=== PATIENT | male | born 1990 | race Hispanic/Latino ===

== ENCOUNTER 2023-10-02 20:42 | Emergency (ER) | payer SELFPAY ==
--- OUTSIDE RECORDS SUMMARY | 2023-10-02 20:49 | XMS REPORT | Continuity of Care Document ---
Author Name Unknown Address [address] [facility]. [address] [place] [address] [facility] Address [address] [facility] [address] [place] [address] Care Team Providers Care Photography Sales Associate Name Role Phone Yang Sparks Primary Care Physician Medications Ordered Medication Name Filled Medication Name Start Date Stop Date Current Medication? Ordering Clinician Indication Dosage Frequency Signature (SIG) Comments Components Source TAKE 1 TABLET BY MOUTH TWICE DAILY 2021-03 0-11 00:00: 00 No TAKE 1 TABLET BY MOUTH TWICE DAILY 2021-03 011 00:00: 00 No TAKE 1 TABLET TWICE DAILY. 8-04 00:00: 00 No 4 lisinopril 20 mg tablet 0 08-20 00:00: 00 No 1mg glimepiride 4 mg tablet 0 08-20 00:00: 00 No 1mg metformin 1,000 mg tablet 0 08-20 00:00: 00 No 1mg atorvastati n 20 mg tablet 0 23 00:00: 00 No 1mg Dose Unknown 0 08-20 00:00: 00 No glimepiride 4 mg tablet 0 08-20 00:00: 00 No 1mg metformin 1,000 mg tablet 0 08-20 00:00: 00 No 1mg atorvastati n 20 mg tablet 0 23 00:00: 00 No 1mg Dose Unknown 0 3-22 00:00: 00 No Dose Unknown 0 3-22 00:00: 00 No Dose Unknown 2021-0 3-22 00:00: 00 No Dose Unknown 0 3-22 00:00: 00 No Dose Unknown 0 3-22 00:00: 00 No Dose Unknown 0 3-22 00:00: 00 No Dose Unknown 2021-0 3-22 00:00: 00 No Dose Unknown 0 3-22 00:00: 00 No Dose Unknown 0 3-22 00:00: 00 No Dose Unknown 0 3-22 00:00: 00 No atorvastati n 20 mg tablet 2020-0 9-15 00:00: 00 No 1mg atorvastati n 20 mg tablet 2020-0 9-15 00:00: 00 No 1mg atorvastati n 10 mg tablet 2020-0 8-20 00:00: 00 No 1mg lisinopril 20 mg tablet 2020-0 8-20 00:00: 00 No 1mg Actos 45 mg tablet 2020-0 8-20 00:00: 00 No 1mg glimepiride 4 mg tablet 2020-0 8-20 00:00: 00 No 1mg metformin 1,000 mg tablet 2020-0 8-20 00:00: 00 No 1mg atorvastati n 20 mg tablet 2020-0 8-20 00:00: 00 No 1mg atorvastati n 10 mg tablet 2020-0 8-20 00:00: 00 No 1mg lisinopril 20 mg tablet 2020-0 8-20 00:00: 00 No 1mg Actos 45 mg tablet 2020-0 8-20 00:00: 00 No 1mg glimepiride 4 mg tablet 2020-0 8-20 00:00: 00 No 1mg metformin 1,000 mg tablet 2020-0 8-20 00:00: 00 No 1mg atorvastati n 20 mg tablet 2020-0 8-20 00:00: 00 No 1mg atorvastati n 10 mg tablet 2020-0 7-20 00:00: 00 No 1mg lisinopril 20 mg tablet 2020-0 7-20 00:00: 00 No 1mg glimepiride 4 mg tablet 2020-0 7-20 00:00: 00 No 1mg metformin 1,000 mg tablet 2020-0 7-20 00:00: 00 No 1mg atorvastati n 10 mg tablet 2020-0 7-20 00:00: 00 No 1mg lisinopril 20 mg tablet 0 7-20 00:00: 00 No 1mg glimepiride 4 mg tablet 0 7-20 00:00: 00 No 1mg metformin 1,000 mg tablet 0 720 00:00: 00 No 1mg metformin 1,000 mg tablet 0 4- 00:00: 00 No 1mg glimepiride 4 mg tablet 0 4- 00:00: 00 No 1mg atorvastati n 10 mg tablet 0 - 00:00: 00 No 1mg lisinopril 20 mg tablet 0 4- 00:00: 00 No 1mg metformin 1,000 mg tablet 0 4- 00:00: 00 No 1mg glimepiride 4 mg tablet 0 4 00:00: 00 No 1mg atorvastati n 10 mg tablet 0 - 00:00: 00 No 1mg lisinopril 20 mg tablet 0 - 00:00: 00 No 1mg pioglitazon e 45 mg tablet 0 1- 00:00: 00 No 1mg lisinopril 20 mg tablet 0 1-20 00:00: 00 No 1mg glimepiride 4 mg tablet 0 1-20 00:00: 00 No 1mg metformin 1,000 mg tablet 0 1-20 00:00: 00 No 1mg pioglitazon e 45 mg tablet 0 -20 00:00: 00 No 1mg lisinopril 20 mg tablet 0 1-20 00:00: 00 No 1mg glimepiride 4 mg tablet 0 1- 00:00: 00 No 1mg metformin 1,000 mg tablet 0 - 00:00: 00 No 1mg pioglitazon e 45 mg tablet 2019-03 00:00: 00 No 1mg glimepiride 4 mg tablet 2019-03 00:00: 00 No 1mg metformin 1,000 mg tablet 2019-03 00:00: 00 No 1mg pioglitazon e 45 mg tablet 2019-03 00:00: 00 No 1mg glimepiride 4 mg tablet 2019-03 00:00: 00 No 1mg metformin 1,000 mg tablet 2019-03 00:00: 00 No 1mg pioglitazon e 45 mg tablet 2019-03 00:00: 00 No 1mg lisinopril 20 mg tablet 2019-03 00:00: 00 No 1mg metformin 1,000 mg tablet 2019-03 00:00: 00 No 1mg glimepiride 4 mg tablet 2019-03 00:00: 00 No 1mg atorvastati n 10 mg tablet 2019-03 00:00: 00 No 1mg pioglitazon e 45 mg tablet 2019-03 00:00: 00 No 1mg lisinopril 20 mg tablet 2019-03 00:00: 00 No 1mg metformin 1,000 mg tablet 2019-03 00:00: 00 No 1mg glimepiride 4 mg tablet 2019-03 00:00: 00 No 1mg atorvastati n 10 mg tablet 2019-03 00:00: 00 No 1mg metformin 1,000 mg tablet 10-15 00:00: 00 No 1mg metformin 1,000 mg tablet 10-15 00:00: 00 No 1mg pioglitazon e 45 mg tablet 09-23 00:00: 00 No 1mg lisinopril 20 mg tablet 09-23 00:00: 00 No 1mg glimepiride 4 mg tablet 09-23 00:00: 00 No 1mg atorvastati n 10 mg tablet 09-23 00:00: 00 No 1mg pioglitazon e 45 mg tablet 09-23 00:00: 00 No 1mg lisinopril 20 mg tablet 09-23 00:00: 00 No 1mg glimepiride 4 mg tablet 09-23 00:00: 00 No 1mg atorvastati n 10 mg tablet 09-23 00:00: 00 No 1mg pioglitazon e 45 mg tablet 3 00:00: 00 No 1mg lisinopril 20 mg tablet 0 3-21 00:00: 00 No 1mg glimepiride 4 mg tablet 0 3 00:00: 00 No 1mg metformin 1,000 mg tablet 0 3 00:00: 00 No 1mg pioglitazon e 45 mg tablet 0 3- 00:00: 00 No 1mg lisinopril 20 mg tablet 0 06-18 00:00: 00 No 1mg glimepiride 4 mg tablet 0 06-18 00:00: 00 No 1mg metformin 1,000 mg tablet 0 3 00:00: 00 No 1mg pioglitazon e 45 mg tablet 0 1-09 00:00: 00 No 1mg pioglitazon e 45 mg tablet 0 1-09 00:00: 00 No 1mg lisinopril 20 mg tablet 0 1-08 00:00: 00 No 1mg glimepiride 4 mg tablet 0 1-08 00:00: 00 No 1mg metformin 1,000 mg tablet 0 1-08 00:00: 00 No 1mg lisinopril 20 mg tablet 0 1-08 00:00: 00 No 1mg glimepiride 4 mg tablet 0 1-08 00:00: 00 No 1mg metformin 1,000 mg tablet 0 1-08 00:00: 00 No 1mg lisinopril 20 mg tablet 0 8-20 00:00: 00 No 1mg metformin 1,000 mg tablet 0 820 00:00: 00 No 1mg glimepiride 4 mg tablet 0 820 00:00: 00 No 1mg lisinopril 20 mg tablet 0 820 00:00: 00 No 1mg metformin 1,000 mg tablet 820 00:00: 00 No 1mg glimepiride 4 mg tablet 820 00:00: 00 No 1mg lisinopril 20 mg tablet 0 605 00:00: 00 No 1mg metformin 1,000 mg tablet 605 00:00: 00 No 1mg glimepiride 4 mg tablet 0 605 00:00: 00 No 1mg lisinopril 20 mg tablet 0 605 00:00: 00 No 1mg metformin 1,000 mg tablet 0 605 00:00: 00 No 1mg glimepiride 4 mg tablet 0 605 00:00: 00 No 1mg lisinopril 20 mg tablet 0 212 00:00: 00 No 1mg metformin 1,000 mg tablet 0 212 00:00: 00 No 1mg glimepiride 4 mg tablet 0 2 00:00: 00 No 1mg lisinopril 20 mg tablet 0 2 00:00: 00 No 1mg metformin 1,000 mg tablet 0 2 00:00: 00 No 1mg glimepiride 4 mg tablet 0 2 00:00: 00 No 1mg lisinopril 20 mg tablet 2017-03 2 00:00: 00 No 1mg metformin 1,000 mg tablet 2017-03 00:00: 00 No 1mg glimepiride 4 mg tablet 2017-03 00:00: 00 No 1mg prednisone 20 mg tablet 2017-03 00:00: 00 No 1mg naproxen 500 mg tablet 2017-03 00:00: 00 No 1mg lisinopril 20 mg tablet 2017-03 00:00: 00 No 1mg metformin 1,000 mg tablet 2017-03 2 00:00: 00 No 1mg glimepiride 4 mg tablet 2017-03 00:00: 00 No 1mg prednisone 20 mg tablet 2017-03 00:00: 00 No 1mg naproxen 500 mg tablet 2017-03 00:00: 00 No 1mg lisinopril 20 mg tablet 12-12 00:00: 00 No 1mg glimepiride 4 mg tablet 12-12 00:00: 00 No 1mg metformin 1,000 mg tablet 12-12 00:00: 00 No 1mg lisinopril 20 mg tablet 12-12 00:00: 00 No 1mg glimepiride 4 mg tablet 12-12 00:00: 00 No 1mg metformin 1,000 mg tablet 12-12 00:00: 00 No 1mg glimepiride 4 mg tablet 09-02 00:00: 00 No 1mg glimepiride 4 mg tablet 09-02 00:00: 00 No 1mg lisinopril 20 mg tablet 08-28 00:00: 00 No 1mg metformin 1,000 mg tablet 08-28 00:00: 00 No 1mg glipizide 10 mg tablet 08-28 00:00: 00 No 2mg metformin 500 mg tablet 08-28 00:00: 00 No 5mg lovastatin 20 mg tablet 08-28 00:00: 00 No 2mg lisinopril 20 mg tablet 08-28 00:00: 00 No 1mg metformin 1,000 mg tablet 08-28 00:00: 00 No 1mg glipizide 10 mg tablet 08-28 00:00: 00 No 2mg metformin 500 mg tablet 08-28 00:00: 00 No 5mg lovastatin 20 mg tablet 08-28 00:00: 00 No 2mg lisinopril 20 mg tablet 07-21 00:00: 00 No 1mg metformin 1,000 mg tablet 07-21 00:00: 00 No 1mg glimepiride 4 mg tablet 07-21 00:00: 00 No 1mg lovastatin 20 mg tablet 07-21 00:00: 00 No 1mg lisinopril 20 mg tablet 07-21 00:00: 00 No 1mg metformin 1,000 mg tablet 07-21 00:00: 00 No 1mg glimepiride 4 mg tablet 07-21 00:00: 00 No 1mg lovastatin 20 mg tablet 07-21 00:00: 00 No 1mg lovastatin 10 mg tablet 04-02 00:00: 00 No 1mg lovastatin 10 mg tablet 04-02 00:00: 00 No 1mg lisinopril 20 mg tablet 2016-03 00:00: 00 No 1mg glimepiride 2 mg tablet 2016-03 00:00: 00 No 1mg metformin 1,000 mg tablet 2016-03 00:00: 00 No 1mg lisinopril 20 mg tablet 2016-03 00:00: 00 No 1mg glimepiride 2 mg tablet 2016-03 00:00: 00 No 1mg metformin 1,000 mg tablet 2016-03 00:00: 00 No 1mg amoxicillin 500 mg tablet 08-01 00:00: 00 No 2mg omeprazole 20 mg tablet,elizabeth yed release 08-01 00:00: 00 No 1mg clarithromy asim 500 mg tablet 08-01 00:00: 00 No 1mg amoxicillin 500 mg tablet 08-01 00:00: 00 No 2mg omeprazole 20 mg tablet,elizabeth yed release 08-01 00:00: 00 No 1mg clarithromy asim 500 mg tablet 08-01 00:00: 00 No 1mg lisinopril 20 mg tablet 07-18 00:00: 00 No 1mg glimepiride 2 mg tablet 07-18 00:00: 00 No 1mg metformin 1,000 mg tablet 07-18 00:00: 00 No 1mg lisinopril 20 mg tablet 07-18 00:00: 00 No 1mg glimepiride 2 mg tablet 07-18 00:00: 00 No 1mg metformin 1,000 mg tablet 07-18 00:00: 00 No 1mg lisinopril 20 mg tablet 2015-03 00:00: 00 No 1mg metformin 1,000 mg tablet 2015-03 00:00: 00 No 1mg glimepiride 2 mg tablet 2015-03 00:00: 00 No 1mg lisinopril 20 mg tablet 2015-03 00:00: 00 No 1mg metformin 1,000 mg tablet 2015-03 00:00: 00 No 1mg glimepiride 2 mg tablet 2015-03 00:00: 00 No 1mg naproxen 500 mg tablet 2015-03 00:00: 00 No 1mg naproxen 500 mg tablet 2015-03 00:00: 00 No 1mg cyclobenzap rine 10 mg tablet 2015-03 00:00: 00 No 1mg cyclobenzap rine 10 mg tablet 2015-03 00:00: 00 No 1mg lisinopril 20 mg tablet 12-10 00:00: 00 No 1mg glimepiride 2 mg tablet 12-10 00:00: 00 No 1mg metformin 1,000 mg tablet 12-10 00:00: 00 No 1mg lisinopril 20 mg tablet 12-10 00:00: 00 No 1mg glimepiride 2 mg tablet 12-10 00:00: 00 No 1mg metformin 1,000 mg tablet 12-10 00:00: 00 No 1mg glimepiride 4 mg tablet 08-29 00:00: 00 No 1mg glimepiride 4 mg tablet 08-29 00:00: 00 No 1mg glimepiride 4 mg tablet 08-20 00:00: 00 No 5mg lisinopril 20 mg tablet 08-20 00:00: 00 No 1mg metformin 1,000 mg tablet 08-20 00:00: 00 No 1mg glimepiride 4 mg tablet 08-20 00:00: 00 No 5mg lisinopril 20 mg tablet 08-20 00:00: 00 No 1mg metformin 1,000 mg tablet 08-20 00:00: 00 No 1mg Robaxin 500 mg tablet 07-19 00:00: 00 No 1mg Robaxin 500 mg tablet 07-19 00:00: 00 No 1mg cyclobenzap rine 5 mg tablet 07-17 00:00: 00 No 1mg cyclobenzap rine 5 mg tablet 07-17 00:00: 00 No 1mg Lantus 100 unit/mL subcutaneou s solution 04-24 00:00: 00 No 15unit/ mL simvastatin 40 mg tablet 04-24 00:00: 00 No 1mg Lantus 100 unit/mL subcutaneou s solution 04-24 00:00: 00 No 15unit/ mL simvastatin 40 mg tablet 04-24 00:00: 00 No 1mg lisinopril 20 mg tablet 04-18 00:00: 00 No 1mg metformin 1,000 mg tablet 04-18 00:00: 00 No 1mg glimepiride 4 mg tablet 04-18 00:00: 00 No 1mg simvastatin 20 mg tablet 04-18 00:00: 00 No 1mg lisinopril 20 mg tablet 04-18 00:00: 00 No 1mg metformin 1,000 mg tablet 04-18 00:00: 00 No 1mg glimepiride 4 mg tablet 04-18 00:00: 00 No 1mg simvastatin 20 mg tablet 04-18 00:00: 00 No 1mg metformin 1,000 mg tablet 11-05 00:00: 00 No 1mg glimepiride 2 mg tablet 11-05 00:00: 00 No 1mg simvastatin 20 mg tablet 11-05 00:00: 00 No 1mg lisinopril 20 mg tablet 11-05 00:00: 00 No 1mg metformin 1,000 mg tablet 11-05 00:00: 00 No 1mg glimepiride 2 mg tablet 11-05 00:00: 00 No 1mg simvastatin 20 mg tablet 11-05 00:00: 00 No 1mg lisinopril 20 mg tablet 11-05 00:00: 00 No 1mg glimepiride 2 mg tablet 06-28 00:00: 00 No 1mg lisinopril 20 mg tablet 06-28 00:00: 00 No 1mg metformin 1,000 mg tablet 06-28 00:00: 00 No 1mg glimepiride 2 mg tablet 06-28 00:00: 00 No 1mg lisinopril 20 mg tablet 06-28 00:00: 00 No 1mg metformin 1,000 mg tablet 06-28 00:00: 00 No 1mg lisinopril 20 mg tablet 06-14 00:00: 00 No 1mg glimepiride 2 mg tablet 06-14 00:00: 00 No 1mg metformin 1,000 mg tablet 06-14 00:00: 00 No 1mg lisinopril 20 mg tablet 06-14 00:00: 00 No 1mg glimepiride 2 mg tablet 06-14 00:00: 00 No 1mg metformin 1,000 mg tablet 06-14 00:00: 00 No 1mg Vital Signs Vital Name Observation Time Observation Value Comments S ource BP Systolic 2022-01-08 10:19:00 144 mm[Hg] BP Diastolic 2022-01-08 10:19:00 90 mm[Hg] Weight Measured 2022-01-08 10:19:00 195.40 pounds Height Measured 2022-01-08 10:19:00 67.80 inches Body Temperature 2022-01-08 10:19:00 97.70 degrees Heart Rate 2022-01-08 10:19:00 89.00 /min Respiratory Rate 2022-01-08 10:19:00 BP Systolic 2021-08-20 08:58:00 132 mm[Hg] BP Diastolic 2021-08-20 08:58:00 81 mm[Hg] Weight Measured 2021-08-20 08:58:00 201.60 pounds Height Measured 2021-08-20 08:58:00 67.80 inches Body Temperature 2021-08-20 08:58:00 97.70 degrees Heart Rate 2021-08-20 08:58:00 98.00 /min Respiratory Rate 2021-08-20 08:58:00 16.00 /min BP Systolic 2021-06-19 16:46:00 146 mm[Hg] BP Diastolic 2021-06-19 16:46:00 88 mm[Hg] Weight Measured 2021-06-19 16:46:00 202.60 pounds Height Measured 2021-06-19 16:46:00 67.80 inches Body Temperature 2021-06-19 16:46:00 98.20 degrees Heart Rate 2021-06-19 16:46:00 86.00 /min Respiratory Rate 2021-06-19 16:46:00 16.00 /min BP Systolic 2021-01-03 10:58:00 BP Diastolic 2021-01-03 10:58:00 Weight Measured 2021-01-03 10:58:00 197.00 pounds Height Measured 2021-01-03 10:58:00 67.80 inches Body Temperature 2021-01-03 10:58:00 Heart Rate 2021-01-03 10:58:00 Respiratory Rate 2021-01-03 10:58:00 BP Systolic 2020-10-17 13:15:00 129 mm[Hg] BP Diastolic 2020-10-17 13:15:00 77 mm[Hg] Weight Measured 2020-10-17 13:15:00 197.80 pounds Height Measured 2020-10-17 13:15:00 67.80 inches Body Temperature 2020-10-17 13:15:00 97.90 degrees Heart Rate 2020-10-17 13:15:00 78.00 /min Respiratory Rate 2020-10-17 13:15:00 16.00 /min BP Systolic 2020-07-10 14:01:00 124 mm[Hg] BP Diastolic 2020-07-10 14:01:00 68 mm[Hg] Weight Measured 2020-07-10 14:01:00 187.60 pounds Height Measured 2020-07-10 14:01:00 67.80 inches Body Temperature 2020-07-10 14:01:00 98.50 degrees Heart Rate 2020-07-10 14:01:00 84.00 /min Respiratory Rate 2020-07-10 14:01:00 18.00 /min BP Systolic 2020-01-31 16:35:00 153 mm[Hg] BP Diastolic 2020-01-31 16:35:00 91 mm[Hg] Weight Measured 2020-01-31 16:35:00 196.20 pounds Height Measured 2020-01-31 16:35:00 67.80 inches Body Temperature 2020-01-31 16:35:00 97.50 degrees Heart Rate 2020-01-31 16:35:00 81.00 /min Respiratory Rate 2020-01-31 16:35:00 16.00 /min BP Systolic 2020-01-31 16:11:00 153 mm[Hg] BP Diastolic 2020-01-31 16:11:00 91 mm[Hg] Weight Measured 2020-01-31 16:11:00 196.20 pounds Height Measured 2020-01-31 16:11:00 67.80 inches Body Temperature 2020-01-31 16:11:00 97.50 degrees Heart Rate 2020-01-31 16:11:00 81.00 /min Respiratory Rate 2020-01-31 16:11:00 16.00 /min BP Systolic 2019-09-24 11:19:00 BP Diastolic 2019-09-24 11:19:00 Weight Measured 2019-09-24 11:19:00 200.00 pounds Height Measured 2019-09-24 11:19:00 67.80 inches Body Temperature 2019-09-24 11:19:00 Heart Rate 2019-09-24 11:19:00 Respiratory Rate 2019-09-24 11:19:00 BP Systolic 2019-06-19 08:17:00 137 mm[Hg] BP Diastolic 2019-06-19 08:17:00 88 mm[Hg] Weight Measured 2019-06-19 08:17:00 198.60 pounds Height Measured 2019-06-19 08:17:00 67.80 inches Body Temperature 2019-06-19 08:17:00 98.30 degrees Heart Rate 2019-06-19 08:17:00 66.00 /min Respiratory Rate 2019-06-19 08:17:00 BP Systolic 2019-04-07 08:58:00 BP Diastolic 2019-04-07 08:58:00 Weight Measured 2019-04-07 08:58:00 Height Measured 2019-04-07 08:58:00 Body Temperature 2019-04-07 08:58:00 Heart Rate 2019-04-07 08:58:00 83.00 /min Respiratory Rate 2019-04-07 08:58:00 Plan of Care Planned Activity Planned Date Details Comments Source Goal Plan of Care Note [code = 12735-8] Goal Plan of Care Note [code = 53184-7] Goal Plan of Care Note [code = 56443-7] Goal Plan of Care Note [code = 63923-4] Goal Plan of Care Note [code = 66953-5] Goal Plan of Care Note [code = 29083-2] Goal Plan of Care Note [code = 35017-7] Goal Plan of Care Note [code = 66389-3] Goal Plan of Care Note [code = 47921-7] Goal Plan of Care Note [code = 42206-6] Goal Plan of Care Note [code = 89323-4] Goal Plan of Care Note [code = 74741-9] Goal Plan of Care Note [code = 58075-2] Goal Plan of Care Note [code = 95131-9] Goal Plan of Care Note [code = 64647-5] Goal Plan of Care Note [code = 70469-2] Goal Plan of Care Note [code = 55399-4] Goal Plan of Care Note [code = 45818-6] Goal Plan of Care Note [code = 69876-6] Goal Plan of Care Note [code = 81666-8] Goal Plan of Care Note [code = 24192-2] Goal Plan of Care Note [code = 05070-8] Goal Plan of Care Note [code = 37275-4] Goal Plan of Care Note [code = 22562-3] Goal Plan of Care Note [code = 87795-9] Goal Plan of Care Note [code = 37951-5] Goal Plan of Care Note [code = 25477-1] Goal Plan of Care Note [code = 54802-7] Goal Plan of Care Note [code = 99154-4] Goal Plan of Care Note [code = 90330-0] Goal Plan of Care Note [code = 42838-2] Goal Plan of Care Note [code = 00224-8] Goal Plan of Care Note [code = 32478-7] Goal Plan of Care Note [code = 55291-7] Goal Plan of Care Note [code = 79678-2] Goal Plan of Care Note [code = 98650-0] Goal Plan of Care Note [code = 91261-9] Goal Plan of Care Note [code = 69919-9] Goal Plan of Care Note [code = 39127-6] Goal Plan of Care Note [code = 78075-3] Goal Plan of Care Note [code = 85664-8] Goal Plan of Care Note [code = 94401-7] Goal Plan of Care Note [code = 38925-2] Goal Plan of Care Note [code = 83048-5] Goal Plan of Care Note [code = 56233-3] Goal Plan of Care Note [code = 19800-2] Encounters Start Date/Time End Date/Time Encounter Type Admission Type Attending [facility] Care Department Encounter ID Source 2023-08-20 20:21:57 2023-08-20 20:21:57 Outpatient SFA SFA [id number] Tavo Ford 2023-02-17 08:21:53 2023-02-17 08:21:53 Outpatient SFA SFA [id number] Tavo Ford 2022-11-23 13:51:27 2022-11-23 13:51:27 Outpatient SFA SFA [id number] Tavo Ford 2022-08-15 15:21:11 2022-08-15 15:21:11 Outpatient SFA SFA [id number] Tavo Ford 2022-08-14 08:48:06 2022-08-14 08:48:06 Outpatient SFA SFA [id number] Tavo Ford 2022-04-06 12:35:39 2022-04-06 12:35:39 Outpatient SFA SFA [id number] Tavo Ford 2022-01-08 10:14:59 2022-01-08 10:14:59 Outpatient SFA SFA [id number] Tavo Ford 2022-01-08 00:00:00 2022-01-08 00:00:00 Outpatient Visit [id number] 2021-10-13 00:00:00 2021-10-13 00:00:00 Outpatient Visit [id number] Results Test Description Test Time Test Comments Results Result Co mments Source COMPREHENSIVE METABOLIC [id number] 04:46:53* Test Item Value Reference Range Interpretation Comme nts GLUCOSE (test code = 2217) 225 MG/DL 70-99 H BUN (test code = 2208) 11 MG/DL 6-20 CREATININE (test code = 2214) 0.80 MG/DL 0.80-1.40 eGFR (2020 CKD-EPI) (test code = 53960) 120 ML/MIN/1.73 >60 CALC BUN/CREAT (test code = 2234) 14 RATIO 6-28 SODIUM (test code = 2230) 137 MEQ/L 133-146 POTASSIUM (test code = 8) 4.2 MEQ/L 3.5-5.4 CHLORIDE (test code = 2214) 98 MEQ/L 95-107 CARBON DIOXIDE (test code = 2205) 23 MEQ/L 19-31 CALCIUM (test code = 2208) 9.6 MG/DL 8.5-10.5 PROTEIN, TOTAL (test code = 2228) 6.8 G/DL 6.1-8.3 ALBUMIN (test code = 2200) 4.8 G/DL 3.5-5.2 CALC GLOBULIN (test code = 0) 2.0 G/DL 1.9-3.7 CALC A/G RATIO (test code = 2233) 2.4 RATIO 1.0-2.6 BILIRUBIN, TOTAL (test code = 2206) 0.5 MG/DL <=1.2 ALKALINE PHOSPHATASE (test code = 2203) 88 U/L 40-112 AST (test code = 2217) 21 U/L 9-50 ALT (test code = 2218) 22 U/L 5-50 UNLESS OTHERWISE INDICATED, ALL TESTING PERFORMED AT [facility] [address] [place] [address] GROUP DYNAMICS INSTRUCTOR: FLORY DEY M.D. [place] NUMBER [id number] [facility]. [id number] HEMOGLOBIN [id number] 03:13:50* Test Item Value Reference Range Interpretation Comme nts HEMOGLOBIN A1c (test code = 04084) 8.0 % 4.2-5.6 H [facility] [employer] [facility] [employer] GUIDELINES FOR HGB A1C: PREDIABETES/INCREASED RISK . . . . . . . 5.7-6.4% DIAGNOSIS OF DIABETES . . . . . . . . . >=6.5% WITH CONFIRMATION OR APPROPRIATE SYMPTOMS NOTE: ASSAY MAY BE AFFECTED BY HEMOGLOBINOPATHIES (SICKLE CELL ANEMIA, S-C DISEASE, OTHERS) OR ARTIFICIALLY LOWERED BY DECREASED RED CELL SURVIVAL (HEMOLYTIC ANEMIAS, BLOOD LOSS, ETC.). CONSIDER ALTERNATE TESTING OR LABORATORY CONSULTATION. COMPREHENSIVE METABOLIC [id number] 05:09:36* Test Item Value Reference Range Interpretation Comme nts GLUCOSE (test code = 2216) 202 MG/DL 70-99 H BUN (test code = 2207) 12 MG/DL 6-20 CREATININE (test code = 2213) 0.65 MG/DL 0.80-1.40 L eGFR (2020 CKD-EPI) (test code = 22947) 128 ML/MIN/1.73 >60 CALC BUN/CREAT (test code = 2234) 18 RATIO 6-28 SODIUM (test code = 2230) 135 MEQ/L 133-146 POTASSIUM (test code = 2227) 4.6 MEQ/L 3.5-5.4 CHLORIDE (test code = 2214) 101 MEQ/L 95-107 CARBON DIOXIDE (test code = 2205) 21 MEQ/L 19-31 CALCIUM (test code = 2208) 9.8 MG/DL 8.5-10.5 PROTEIN, TOTAL (test code = 2228) 6.9 G/DL 6.1-8.3 ALBUMIN (test code = 2200) 4.8 G/DL 3.5-5.2 CALC GLOBULIN (test code = 2239) 2.1 G/DL 1.9-3.7 CALC A/G RATIO (test code = 2233) 2.3 RATIO 1.0-2.6 BILIRUBIN, TOTAL (test code = 2206) 0.3 MG/DL See_Comment [Automated me ssage] The system which generated this result transmitted reference range: <=1.2. The reference range was not used to interpret this result as normal/abnormal. ALKALINE PHOSPHATASE (test code = 2203) 88 U/L 40-112 AST (test code = 2217) 16 U/L 9-50 ALT (test code = 2218) 21 U/L 5-50 ALBUMIN/CREATININE RATIO, URINE, [id number] 04:12:57* Test Item Value Reference Range Interpretation Comme nts CREATININE, URINE, CONC. (test code = 2071) 49.9 MG/DL NOT ESTAB ALBUMIN, URINE, RANDOM (test code = 38538) 2.6 MG/DL NOT ESTAB CALC ALBUMIN/CREAT, RND (test code = 85135) 52 MG/G <30 H Note: Albumin/Cr eatinine ratio reference interval reflects ADA and NKF guidelines. UNLESS OTHERWISE INDICATED, ALL TESTING PERFORMED AT [facility] [address] [place] [id number] [employer] INSTRUCTOR: FLORY DEY M.D. MELODYIA NUMBER [id number] [place]. [id number] HEMOGLOBIN [id number] 02:15:46* Test Item Value Reference Range Interpretation Comme nts HEMOGLOBIN A1c (test code = 42580) 8.1 % 4.2-5.6 H [employer] GUIDELINES FOR HGB A1C: PREDIABETES/INCREASED RISK . . . . . . . 5.7-6.4% DIAGNOSIS OF DIABETES . . . . . . . . . >=6.5% WITH CONFIRMATION OR APPROPRIATE SYMPTOMS NOTE: ASSAY MAY BE AFFECTED BY HEMOGLOBINOPATHIES (SICKLE CELL ANEMIA, S-C DISEASE, OTHERS) OR ARTIFICIALLY LOWERED BY DECREASED RED CELL SURVIVAL (HEMOLYTIC ANEMIAS, BLOOD LOSS, ETC.). CONSIDER ALTERNATE TESTING OR LABORATORY CONSULTATION. LIPID [id number] 04:57:04* Test Item Value Reference Range Interpretation Comme nts CHOLESTEROL (test code = 2210) 213 MG/DL <200 H TRIGLYCERIDES (test code = 2232) 80 MG/DL <150 HDL CHOLESTEROL (test code = 2220) 45 MG/DL >39 CALC LDL CHOL (test code = 2237) 150 MG/DL <100 H NOTE: CALCULATED LDL IS BASED ON MIR-DUNN METHOD WHICHINCLUDES ADJUSTABLE TRIGLYCERIDE:VLDL CHOLESTEROL RATIO.THIS FACTOR VARIES BY MEASURED TRIGLYCERIDE AND NON-HDLCHOLESTEROL CONCENTRATIONS WITH INCREASED CALCULATED LDL SEENIN HIGHER TRIGLYCERIDE OR LOWER NON-HDL SPECIMENS. FOR MOREINFORMATION, SEE CLIENT ANNOUNCEMENT AT [email or web address] RISK RATIO LDL/HDL (test code = 2238) 3.33 RATIO <3.55 UNLESS OTHERW ISE INDICATED, [facility] [address] [place] [id number] GROUP DY[employer] INSTRUCTOR: JOHN BUENROSTRO M.D. CLIA NUMBER [id number] [place]. [id number] HEMOGLOBIN [id number] 02:50:18* Test Item Value Reference Range Interpretation Comme nts HEMOGLOBIN A1c (test code = 93246) 7.7 % 4.2-5.6 H [employer] GUIDELINES FOR HGB A1C: PREDIABETES/INCREASED RISK . . . . . . . 5.7-6.4% DIAGNOSIS OF DIABETES . . . . . . . . . >=6.5% WITH CONFIRMATION OR APPROPRIATE SYMPTOMS NOTE: ASSAY MAY BE AFFECTED BY HEMOGLOBINOPATHIES (SICKLE CELL ANEMIA, S-C DISEASE, OTHERS) OR ARTIFICIALLY LOWERED BY DECREASED RED CELL SURVIVAL (HEMOLYTIC ANEMIAS, BLOOD LOSS, ETC.). CONSIDER ALTERNATE TESTING OR LABORATORY CONSULTATION. HEMOGLOBIN [id number] 05:29:48* Test Item Value Reference Range Interpretation Comme nts HEMOGLOBIN A1c (test code = 19790) 8.9 % 4.2-5.6 H [facility] [employer] GUIDELINES FOR HGB A1C: PREDIABETES/INCREASED RISK . . . . . . . 5.7-6.4% DIAGNOSIS OF DIABETES . . . . . . . . . >=6.5% WITH CONFIRMATION OR APPROPRIATE SYMPTOMS NOTE: ASSAY MAY BE AFFECTED BY HEMOGLOBINOPATHIES (SICKLE CELL ANEMIA, S-C DISEASE, OTHERS) OR ARTIFICIALLY LOWERED BY DECREASED RED CELL SURVIVAL (HEMOLYTIC ANEMIAS, BLOOD LOSS, ETC.). CONSIDER ALTERNATE TESTING OR LABORATORY CONSULTATION. COMPREHENSIVE METABOLIC [id number] 04:51:33* Test Item Value Reference Range Interpretation Comme nts GLUCOSE (test code = 2217) 299 MG/DL 70-99 H BUN (test code = 2207) 10 MG/DL 6-20 CREATININE (test code = 2214) 0.67 MG/DL 0.80-1.40 L eGFR (2020 CKD-EPI) (test code = 48544) 128 ML/MIN/1.73 >60 CALC BUN/CREAT (test code = 2235) 15 RATIO 6-28 SODIUM (test code = 2231) 134 MEQ/L 133-146 POTASSIUM (test code = 2228) 4.3 MEQ/L 3.5-5.4 CHLORIDE (test code = 2215) 98 MEQ/L 95-107 CARBON DIOXIDE (test code = 2206) 20 MEQ/L 19-31 CALCIUM (test code = 2209) 9.7 MG/DL 8.5-10.5 PROTEIN, TOTAL (test code = 222) 6.8 G/DL 6.1-8.3 ALBUMIN (test code = 220) 4.6 G/DL 3.5-5.2 CALC GLOBULIN (test code = 2240) 2.2 G/DL 1.9-3.7 CALC A/G RATIO (test code = 2234) 2.1 RATIO 1.0-2.6 BILIRUBIN, TOTAL (test code = 2207) 0.3 MG/DL See_Comment [Automated me ssage] The system which generated this result transmitted reference range: <=1.2. The reference range was not used to interpret this result as normal/abnormal. ALKALINE PHOSPHATASE (test code = 2204) 90 U/L 40-112 AST (test code = 2218) 21 U/L 9-50 ALT (test code = 2219) 31 U/L 5-50 LIPID [id number] 04:51:33* Test Item Value Reference Range Interpretation Comme nts CHOLESTEROL (test code = 2210) 248 MG/DL <200 H TRIGLYCERIDES (test code = 2232) 212 MG/DL <150 H HDL CHOLESTEROL (test code = 2220) 50 MG/DL >39 CALC LDL CHOL (test code = 2237) 160 MG/DL <100 H NOTE: CALCULATED LDL IS BASED ON MIR-DUNN METHOD WHICHINCLUDES ADJUSTABLE TRIGLYCERIDE:VLDL CHOLESTEROL RATIO.THIS FACTOR VARIES BY MEASURED TRIGLYCERIDE AND NON-HDLCHOLESTEROL CONCENTRATIONS WITH INCREASED CALCULATED LDL SEENIN HIGHER TRIGLYCERIDE OR LOWER NON-HDL SPECIMENS. FOR MOREINFORMATION, SEE CLIENT ANNOUNCEMENT AT [email or web address] RISK RATIO LDL/HDL (test code = 2238) 3.20 RATIO <3.55 UNLESS OTHERW ISE INDICATED, ALL TESTING PERFORMED [facility] [address] [place] [id number] [employer] DY[employer] INSTRUCTOR: JOHN BUENROSTRO M.D. CLIA NUMBER [id number] [facility] [place]. [id number] LIPID [id number] 00:00:00* Test Item Value Reference Range Interpretation Comme nts CHOLESTEROL (test code = 2210) 248 MG/DL TRIGLYCERIDES (test code = 2232) 212 MG/DL HDL CHOLESTEROL (test code = 2220) 50 MG/DL CALC LDL CHOL (test code = 2237) 160 MG/DL RISK RATIO LDL/HDL (test cod e = 2238) 3.20 RATIO HEMOGLOBIN [id number] 00:00:00* Test Item Value Reference Range Interpretation Comme nts HEMOGLOBIN A1c (test code = 92553) 8.9 % HEMOGLOBIN [id number] 00:00:00* Test Item Value Reference Range Interpretation Comme nts HEMOGLOBIN A1c (test code = 29947) 8.9 % HEMOGLOBIN [id number] 00:00:00* Test Item Value Reference Range Interpretation Comme nts HEMOGLOBIN A1c (test code = 70461) 8.9 % COMPREHENSIVE METABOLIC [id number] 00:00:00* Test Item Value Reference Range Interpretation Comme nts GLUCOSE (test code = 2217) 299 MG/DL BUN (test code = 2208) 10 MG/DL CREATININE (test code = 2214) 0.67 MG/DL eGFR (2020 CKD-EPI) (test code = 64744) 128 ML/MIN/1.73 CALC BUN/CREAT (test code = 2235) 15 RATIO SODIUM (test code = 2231) 134 MEQ/L POTASSIUM (test code = 2228) 4.3 MEQ/L CHLORIDE (test code = 2215) 98 MEQ/L CARBON DIOXIDE (test code = 2206) 20 MEQ/L CALCIUM (test code = 2209) 9.7 MG/DL PROTEIN, TOTAL (test code = 2229) 6.8 G/DL ALBUMIN (test code = 2201) 4.6 G/DL CALC GLOBULIN (test code = 2240) 2.2 G/DL CALC A/G RATIO (test code = 2234) 2.1 RATIO BILIRUBIN, TOTAL (test code = 2207) 0.3 MG/DL ALKALINE PHOSPHATASE (test code = 2204) 90 U/L AST (test code = 2218) 21 U/L ALT (test code = 2219) 31 U/L COMPREHENSIVE METABOLIC [id number] 00:00:00* Test Item Value Reference Range Interpretation Comme nts GLUCOSE (test code = 2217) 299 MG/DL BUN (test code = 2208) 10 MG/DL CREATININE (test code = 2214) 0.67 MG/DL eGFR (2020 CKD-EPI) (test code = 06205) 128 ML/MIN/1.73 CALC BUN/CREAT (test code = 2235) 15 RATIO SODIUM (test code = 2231) 134 MEQ/L POTASSIUM (test code = 2228) 4.3 MEQ/L CHLORIDE (test code = 2215) 98 MEQ/L CARBON DIOXIDE (test code = 2206) 20 MEQ/L CALCIUM (test code = 2209) 9.7 MG/DL PROTEIN, TOTAL (test code = 2229) 6.8 G/DL ALBUMIN (test code = 2201) 4.6 G/DL CALC GLOBULIN (test code = 2240) 2.2 G/DL CALC A/G RATIO (test code = 2234) 2.1 RATIO BILIRUBIN, TOTAL (test code = 2207) 0.3 MG/DL ALKALINE PHOSPHATASE (test code = 2204) 90 U/L AST (test code = 2218) 21 U/L ALT (test code = 2219) 31 U/L LIPID [id number] 00:00:00* Test Item Value Reference Range Interpretation Comme nts CHOLESTEROL (test code = 2210) 248 MG/DL TRIGLYCERIDES (test code = 2232) 212 MG/DL HDL CHOLESTEROL (test code = 2220) 50 MG/DL CALC LDL CHOL (test code = 2237) 160 MG/DL RISK RATIO LDL/HDL (test cod e = 2238) 3.20 RATIO LIPID [id number] 00:00:00* Test Item Value Reference Range Interpretation Comme nts CHOLESTEROL (test code = 2210) 248 MG/DL TRIGLYCERIDES (test code = 2232) 212 MG/DL HDL CHOLESTEROL (test code = 2220) 50 MG/DL CALC LDL CHOL (test code = 2237) 160 MG/DL RISK RATIO LDL/HDL (test cod e = 2238) 3.20 RATIO HEMOGLOBIN [id number] 00:00:00* Test Item Value Reference Range Interpretation Comme nts HEMOGLOBIN A1c (test code = 75793) 8.9 % HEMOGLOBIN [id number] 00:00:00* Test Item Value Reference Range Interpretation Comme nts HEMOGLOBIN A1c (test code = 04054) 8.9 % COMPREHENSIVE METABOLIC [id number] 00:00:00* Test Item Value Reference Range Interpretation Comme nts GLUCOSE (test code = 2217) 299 MG/DL BUN (test code = 8) 10 MG/DL CREATININE (test code = 2214) 0.67 MG/DL eGFR (2020 CKD-EPI) (test code = 21650) 128 ML/MIN/1.73 CALC BUN/CREAT (test code = 2235) 15 RATIO SODIUM (test code = 2231) 134 MEQ/L POTASSIUM (test code = 2228) 4.3 MEQ/L CHLORIDE (test code = 2215) 98 MEQ/L CARBON DIOXIDE (test code = 2206) 20 MEQ/L CALCIUM (test code = 2209) 9.7 MG/DL PROTEIN, TOTAL (test code = 2229) 6.8 G/DL ALBUMIN (test code = 2201) 4.6 G/DL CALC GLOBULIN (test code = 2240) 2.2 G/DL CALC A/G RATIO (test code = 2234) 2.1 RATIO BILIRUBIN, TOTAL (test code = 2207) 0.3 MG/DL ALKALINE PHOSPHATASE (test code = 220) 90 U/L AST (test code = 2218) 21 U/L ALT (test code = 2219) 31 U/L SARS-CoV-2 (COVID-19) by RT-PCR (HIGH RISK)2021-01-05 00:00:00* Test Item Value Reference Range Interpretation Comme nts SARS-CoV-2 INTERPRETATION (t est code = 49463) NEGATIVE SOURCE (test code = 68723) NOT SPECIFIED SARS-CoV-2 (COVID-19) by RT-PCR (HIGH RISK)2021-01-05 00:00:00* Test Item Value Reference Range Interpretation Comme nts SARS-CoV-2 INTERPRETATION (t est code = 70971) NEGATIVE SOURCE (test code = 54024) NOT SPECIFIED SARS-CoV-2 (COVID-19) by RT-PCR (HIGH RISK)2021-01-05 00:00:00* Test Item Value Reference Range Interpretation Comme nts SARS-CoV-2 INTERPRETATION (t est code = 03580) NEGATIVE SOURCE (test code = 21946) NOT SPECIFIED MICROALBUMIN/CREATININE, RANDOM AND [id number] 00:00:00* Test Item Value Reference Range Interpretation Comme nts CREATININE, URINE, CONC. (te st code = 2072) 105.2 MG/DL ALBUMIN, URINE, RANDOM (test code = 85214) 2.4 MG/DL CALC ALBUMIN/CREAT, RND (nata t code = 11337) 23 MG/G MICROALBUMIN/CREATININE, RANDOM AND [id number] 00:00:00* Test Item Value Reference Range Interpretation Comme nts CREATININE, URINE, CONC. (te st code = 2071) 105.2 MG/DL ALBUMIN, URINE, RANDOM (test code = 54816) 2.4 MG/DL CALC ALBUMIN/CREAT, RND (nata t code = 35457) 23 MG/G MICROALBUMIN/CREATININE, RANDOM AND [id number] 00:00:00* Test Item Value Reference Range Interpretation Comme nts CREATININE, URINE, CONC. (te st code = 2071) 105.2 MG/DL ALBUMIN, URINE, RANDOM (test code = 24502) 2.4 MG/DL CALC ALBUMIN/CREAT, RND (nata t code = 48163) 23 MG/G LIPID [id number] 00:00:00* Test Item Value Reference Range Interpretation Comme nts CHOLESTEROL (test code = 2210) 241 MG/DL TRIGLYCERIDES (test code = 2232) 119 MG/DL HDL CHOLESTEROL (test code = 2220) 52 MG/DL CALC LDL CHOL (test code = 2237) 165 MG/DL RISK RATIO LDL/HDL (test cod e = 2238) 3.17 RATIO COMPREHENSIVE METABOLIC [id number] 00:00:00* Test Item Value Reference Range Interpretation Comme nts GLUCOSE (test code = 2217) 220 MG/DL BUN (test code = 2208) 13 MG/DL CREATININE (test code = 2214) 0.78 MG/DL eGFR AMER. (test cod e = 13263) 139 ML/MIN/1.73 eGFR NON- AMER. (test code = 78559) 120 ML/MIN/1.73 CALC BUN/CREAT (test code = 2235) 17 RATIO SODIUM (test code = 2231) 137 MEQ/L POTASSIUM (test code = 2228) 4.7 MEQ/L CHLORIDE (test code = 2215) 100 MEQ/L CARBON DIOXIDE (test code = 2206) 20 MEQ/L CALCIUM (test code = 2209) 9.7 MG/DL PROTEIN, TOTAL (test code = 2229) 6.9 G/DL ALBUMIN (test code = 2201) 4.7 G/DL CALC GLOBULIN (test code = 2240) 2.2 G/DL CALC A/G RATIO (test code = 2234) 2.1 RATIO BILIRUBIN, TOTAL (test code = 2207) 0.3 MG/DL ALKALINE PHOSPHATASE (test code = 2204) 88 U/L AST (test code = 2218) 16 U/L ALT (test code = 2219) 22 U/L COMPREHENSIVE METABOLIC [id number] 00:00:00* Test Item Value Reference Range Interpretation Comme nts GLUCOSE (test code = 2217) 220 MG/DL BUN (test code = 2208) 13 MG/DL CREATININE (test code = 2214) 0.78 MG/DL eGFR AMER. (test cod e = 06865) 139 ML/MIN/1.73 eGFR NON- AMER. (test code = 41545) 120 ML/MIN/1.73 CALC BUN/CREAT (test code = 2235) 17 RATIO SODIUM (test code = 2231) 137 MEQ/L POTASSIUM (test code = 2228) 4.7 MEQ/L CHLORIDE (test code = 2215) 100 MEQ/L CARBON DIOXIDE (test code = 2206) 20 MEQ/L CALCIUM (test code = 2209) 9.7 MG/DL PROTEIN, TOTAL (test code = 2229) 6.9 G/DL ALBUMIN (test code = 2201) 4.7 G/DL CALC GLOBULIN (test code = 2240) 2.2 G/DL CALC A/G RATIO (test code = 2234) 2.1 RATIO BILIRUBIN, TOTAL (test code = 2207) 0.3 MG/DL ALKALINE PHOSPHATASE (test code = 2204) 88 U/L AST (test code = 2218) 16 U/L ALT (test code = 2219) 22 U/L LIPID [id number] 00:00:00* Test Item Value Reference Range Interpretation Comme nts CHOLESTEROL (test code = 2210) 241 MG/DL TRIGLYCERIDES (test code = 2232) 119 MG/DL HDL CHOLESTEROL (test code = 2220) 52 MG/DL CALC LDL CHOL (test code = 2237) 165 MG/DL RISK RATIO LDL/HDL (test cod e = 2238) 3.17 RATIO LIPID [id number] 00:00:00* Test Item Value Reference Range Interpretation Comme nts CHOLESTEROL (test code = 2210) 241 MG/DL TRIGLYCERIDES (test code = 2232) 119 MG/DL HDL CHOLESTEROL (test code = 2220) 52 MG/DL CALC LDL CHOL (test code = 2237) 165 MG/DL RISK RATIO LDL/HDL (test cod e = 2238) 3.17 RATIO COMPREHENSIVE METABOLIC [id number] 00:00:00* Test Item Value Reference Range Interpretation Comme nts GLUCOSE (test code = 2217) 220 MG/DL BUN (test code = 2208) 13 MG/DL CREATININE (test code = 2214) 0.78 MG/DL eGFR AMER. (test cod e = 01929) 139 ML/MIN/1.73 eGFR NON- AMER. (test code = 89870) 120 ML/MIN/1.73 CALC BUN/CREAT (test code = 2235) 17 RATIO SODIUM (test code = 2231) 137 MEQ/L POTASSIUM (test code = 2228) 4.7 MEQ/L CHLORIDE (test code = 2215) 100 MEQ/L CARBON DIOXIDE (test code = 2206) 20 MEQ/L CALCIUM (test code = 2209) 9.7 MG/DL PROTEIN, TOTAL (test code = 2229) 6.9 G/DL ALBUMIN (test code = 2201) 4.7 G/DL CALC GLOBULIN (test code = 2240) 2.2 G/DL CALC A/G RATIO (test code = 2234) 2.1 RATIO BILIRUBIN, TOTAL (test code = 2207) 0.3 MG/DL ALKALINE PHOSPHATASE (test code = 2204) 88 U/L AST (test code = 2218) 16 U/L ALT (test code = 2219) 22 U/L HEMOGLOBIN [id number] 00:00:00* Test Item Value Reference Range Interpretation Comme nts HEMOGLOBIN A1c (test code = 80729) 8.9 % HEMOGLOBIN [id number] 00:00:00* Test Item Value Reference Range Interpretation Comme nts HEMOGLOBIN A1c (test code = 41215) 8.9 % HEMOGLOBIN [id number] 00:00:00* Test Item Value Reference Range Interpretation Comme nts HEMOGLOBIN A1c (test code = 14964) 8.9 % HEMOGLOBIN [id number] 00:00:00* Test Item Value Reference Range Interpretation Comme nts HEMOGLOBIN A1c (test code = 32420) 8.9 % HEMOGLOBIN [id number] 00:00:00* Test Item Value Reference Range Interpretation Comme nts HEMOGLOBIN A1c (test code = 46360) 8.9 % LIPID [id number] 00:00:00* Test Item Value Reference Range Interpretation Comme nts CHOLESTEROL (test code = 2210) 218 MG/DL TRIGLYCERIDES (test code = 2232) 85 MG/DL HDL CHOLESTEROL (test code = 2220) 46 MG/DL CALC LDL CHOL (test code = 2237) 153 MG/DL RISK RATIO LDL/HDL (test cod e = 2238) 3.33 RATIO LIPID [id number] 00:00:00* Test Item Value Reference Range Interpretation Comme nts CHOLESTEROL (test code = 2210) 218 MG/DL TRIGLYCERIDES (test code = 2232) 85 MG/DL HDL CHOLESTEROL (test code = 2220) 46 MG/DL CALC LDL CHOL (test code = 2237) 153 MG/DL RISK RATIO LDL/HDL (test cod e = 2238) 3.33 RATIO HEMOGLOBIN [id number] 00:00:00* Test Item Value Reference Range Interpretation Comme nts HEMOGLOBIN A1c (test code = 09762) 8.3 % HEMOGLOBIN [id number] 00:00:00* Test Item Value Reference Range Interpretation Comme nts HEMOGLOBIN A1c (test code = 32543) 8.3 % HEMOGLOBIN [id number] 00:00:00* Test Item Value Reference Range Interpretation Comme nts HEMOGLOBIN A1c (test code = 45634) 8.3 % LIPID [id number] 00:00:00* Test Item Value Reference Range Interpretation Comme nts CHOLESTEROL (test code = 2210) 218 MG/DL TRIGLYCERIDES (test code = 2232) 85 MG/DL HDL CHOLESTEROL (test code = 2220) 46 MG/DL CALC LDL CHOL (test code = 2237) 153 MG/DL RISK RATIO LDL/HDL (test cod e = 2238) 3.33 RATIO HEMOGLOBIN [id number] 00:00:00* Test Item Value Reference Range Interpretation Comme nts HEMOGLOBIN A1c (test code = 70776) 8.3 % HEMOGLOBIN [id number] 00:00:00* Test Item Value Reference Range Interpretation Comme nts HEMOGLOBIN A1c (test code = 32508) 8.3 % SARS-CoV-2 (COVID-19) by RT-PCR (HIGH RISK)2019-10-04 00:00:00* Test Item Value Reference Range Interpretation Comme nts SARS-CoV-2 INTERPRETATION (test code = 11396) NEGATIVE SOURCE (test code = 84443) NASOPHARYNGEAL SARS-CoV-2 (COVID-19) by RT-PCR (HIGH RISK)2019-10-04 00:00:00* Test Item Value Reference Range Interpretation Comme nts SARS-CoV-2 INTERPRETATION (test code = 36651) NEGATIVE SOURCE (test code = 96477) NASOPHARYNGEAL SARS-CoV-2 (COVID-19) by RT-PCR (HIGH RISK)2019-10-04 00:00:00* Test Item Value Reference Range Interpretation Comme nts SARS-CoV-2 INTERPRETATION (test code = 86695) NEGATIVE SOURCE (test code = 44964) NASOPHARYNGEAL MICROALBUMIN, [id number] 00:00:00* Test Item Value Reference Range Interpretation Comme nts ALBUMIN, URINE, RANDOM (test code = 50964) 8.0 MG/DL MICROALBUMIN, [id number] 00:00:00* Test Item Value Reference Range Interpretation Comme nts ALBUMIN, URINE, RANDOM (test code = 43305) 8.0 MG/DL MICROALBUMIN, [id number] 00:00:00* Test Item Value Reference Range Interpretation Comme nts ALBUMIN, URINE, RANDOM (test code = 70749) 8.0 MG/DL LIPID [id number] 00:00:00* Test Item Value Reference Range Interpretation Comme nts CHOLESTEROL (test code = 2210) 266 MG/DL TRIGLYCERIDES (test code = 2232) 166 MG/DL HDL CHOLESTEROL (test code = 2220) 55 MG/DL CALC LDL CHOL (test code = 2237) 180 MG/DL RISK RATIO LDL/HDL (test cod e = 2238) 3.27 RATIO COMPREHENSIVE METABOLIC [id number] 00:00:00* Test Item Value Reference Range Interpretation Comme nts GLUCOSE (test code = 2217) 182 MG/DL BUN (test code = 2208) 12 MG/DL CREATININE (test code = 2214) 0.67 MG/DL eGFR AMER. (test cod e = 08141) 150 ML/MIN/1.73 eGFR NON- AMER. (test code = 23282) 130 ML/MIN/1.73 CALC BUN/CREAT (test code = 2235) 18 RATIO SODIUM (test code = 2231) 137 MEQ/L POTASSIUM (test code = 2228) 4.0 MEQ/L CHLORIDE (test code = 2215) 98 MEQ/L CARBON DIOXIDE (test code = 2206) 22 MEQ/L CALCIUM (test code = 2209) 9.6 MG/DL PROTEIN, TOTAL (test code = 2229) 6.8 G/DL ALBUMIN (test code = 2201) 4.5 G/DL CALC GLOBULIN (test code = 2240) 2.3 G/DL CALC A/G RATIO (test code = 2234) 2.0 RATIO BILIRUBIN, TOTAL (test code = 7) 0.4 MG/DL ALKALINE PHOSPHATASE (test code = 2204) 78 U/L AST (test code = 2218) 18 U/L ALT (test code = 2219) 34 U/L HEMOGLOBIN [id number] 00:00:00* Test Item Value Reference Range Interpretation Comme nts HEMOGLOBIN A1c (test code = 67167) 9.9 % HEMOGLOBIN [id number] 00:00:00* Test Item Value Reference Range Interpretation Comme nts HEMOGLOBIN A1c (test code = 64948) 9.9 % HEMOGLOBIN [id number] 00:00:00* Test Item Value Reference Range Interpretation Comme nts HEMOGLOBIN A1c (test code = 11557) 9.9 % LIPID [id number] 00:00:00* Test Item Value Reference Range Interpretation Comme nts CHOLESTEROL (test code = 2210) 266 MG/DL TRIGLYCERIDES (test code = 2232) 166 MG/DL HDL CHOLESTEROL (test code = 2220) 55 MG/DL CALC LDL CHOL (test code = 2237) 180 MG/DL RISK RATIO LDL/HDL (test cod e = 2238) 3.27 RATIO LIPID [id number] 00:00:00* Test Item Value Reference Range Interpretation Comme nts CHOLESTEROL (test code = 2210) 266 MG/DL TRIGLYCERIDES (test code = 2232) 166 MG/DL HDL CHOLESTEROL (test code = 2220) 55 MG/DL CALC LDL CHOL (test code = 2237) 180 MG/DL RISK RATIO LDL/HDL (test cod e = 2238) 3.27 RATIO COMPREHENSIVE METABOLIC [id number] 00:00:00* Test Item Value Reference Range Interpretation Comme nts GLUCOSE (test code = 2217) 182 MG/DL BUN (test code = 2207) 12 MG/DL CREATININE (test code = 2214) 0.67 MG/DL eGFR AMER. (test cod e = 57819) 150 ML/MIN/1.73 eGFR NON- AMER. (test code = 19942) 130 ML/MIN/1.73 CALC BUN/CREAT (test code = 2235) 18 RATIO SODIUM (test code = 2231) 137 MEQ/L POTASSIUM (test code = 2228) 4.0 MEQ/L CHLORIDE (test code = 2215) 98 MEQ/L CARBON DIOXIDE (test code = 2206) 22 MEQ/L CALCIUM (test code = 2209) 9.6 MG/DL PROTEIN, TOTAL (test code = 2229) 6.8 G/DL ALBUMIN (test code = 2201) 4.5 G/DL CALC GLOBULIN (test code = 2240) 2.3 G/DL CALC A/G RATIO (test code = 2234) 2.0 RATIO BILIRUBIN, TOTAL (test code = 2207) 0.4 MG/DL ALKALINE PHOSPHATASE (test code = 2204) 78 U/L AST (test code = 2218) 18 U/L ALT (test code = 2219) 34 U/L COMPREHENSIVE METABOLIC [id number] 00:00:00* Test Item Value Reference Range Interpretation Comme nts GLUCOSE (test code = 2217) 182 MG/DL BUN (test code = 2208) 12 MG/DL CREATININE (test code = 2214) 0.67 MG/DL eGFR AMER. (test cod e = 14293) 150 ML/MIN/1.73 eGFR NON- AMER. (test code = 20301) 130 ML/MIN/1.73 CALC BUN/CREAT (test code = 2235) 18 RATIO SODIUM (test code = 2231) 137 MEQ/L POTASSIUM (test code = 2228) 4.0 MEQ/L CHLORIDE (test code = 2215) 98 MEQ/L CARBON DIOXIDE (test code = 2206) 22 MEQ/L CALCIUM (test code = 2209) 9.6 MG/DL PROTEIN, TOTAL (test code = 2229) 6.8 G/DL ALBUMIN (test code = 2201) 4.5 G/DL CALC GLOBULIN (test code = 2240) 2.3 G/DL CALC A/G RATIO (test code = 2234) 2.0 RATIO BILIRUBIN, TOTAL (test code = 2207) 0.4 MG/DL ALKALINE PHOSPHATASE (test code = 2204) 78 U/L AST (test code = 2218) 18 U/L ALT (test code = 2219) 34 U/L HEMOGLOBIN [id number] 00:00:00* Test Item Value Reference Range Interpretation Comme nts HEMOGLOBIN A1c (test code = 89542) 9.9 % HEMOGLOBIN [id number] 00:00:00* Test Item Value Reference Range Interpretation Comme nts HEMOGLOBIN A1c (test code = 98049) 9.9 % HEMOGLOBIN [id number] 00:00:00* Test Item Value Reference Range Interpretation Comme nts HEMOGLOBIN A1c (test code = 35936) 10.0 % HEMOGLOBIN [id number] 00:00:00* Test Item Value Reference Range Interpretation Comme nts HEMOGLOBIN A1c (test code = 79845) 10.0 % HEMOGLOBIN [id number] 00:00:00* Test Item Value Reference Range Interpretation Comme nts HEMOGLOBIN A1c (test code = 71403) 10.0 % HEMOGLOBIN [id number] 00:00:00* Test Item Value Reference Range Interpretation Comme nts HEMOGLOBIN A1c (test code = 69433) 10.0 % HEMOGLOBIN [id number] 00:00:00* Test Item Value Reference Range Interpretation Comme nts HEMOGLOBIN A1c (test code = 27824) 10.0 % CBC W/AUTO [id number] 00:00:00* Test Item Value Reference Range Interpretation Comme nts WBC (test code = 1001) 5.3 K/UL RBC (test code = 1002) 5.66 M/UL HEMOGLOBIN (test code = 1003) 17.2 G/DL HEMATOCRIT (test code = 1004) 50.1 % MCV (test code = 1005) 88.5 fL MCH (test code = 1006) 30.4 PG MCHC (test code = 1007) 34.3 G/DL RDW (test code = 1038) 12.5 % NEUTROPHILS (test code = 1008) 65.1 % LYMPHOCYTES (test code = 1010) 29.1 % MONOCYTES (test code = 1011) 4.6 % EOSINOPHILS (test code = 1012) 0.8 % BASOPHILS (test code = 1013) 0.4 % PLATELET COUNT (test code = 1015) 198 K/UL COMPREHENSIVE METABOLIC [id number] 00:00:00* Test Item Value Reference Range Interpretation Comme nts GLUCOSE (test code = 2217) 342 MG/DL BUN (test code = 2208) 10 MG/DL CREATININE (test code = 2214) 0.79 MG/DL eGFR AMER. (test cod e = 07895) 143 ML/MIN/1.73 eGFR NON- AMER. (test code = 82492) 123 ML/MIN/1.73 CALC BUN/CREAT (test code = 2235) 13 RATIO SODIUM (test code = 2231) 135 MEQ/L POTASSIUM (test code = 2228) 4.5 MEQ/L CHLORIDE (test code = 2215) 95 MEQ/L CARBON DIOXIDE (test code = 2206) 24 MEQ/L CALCIUM (test code = 2209) 9.2 MG/DL PROTEIN, TOTAL (test code = 2229) 6.6 G/DL ALBUMIN (test code = 2201) 4.2 G/DL CALC GLOBULIN (test code = 2240) 2.4 G/DL CALC A/G RATIO (test code = 2234) 1.8 RATIO BILIRUBIN, TOTAL (test code = 2207) 0.5 MG/DL ALKALINE PHOSPHATASE (test code = 2204) 85 U/L AST (test code = 2218) 17 U/L ALT (test code = 2219) 24 U/L LIPID [id number] 00:00:00* Test Item Value Reference Range Interpretation Comme nts CHOLESTEROL (test code = 2210) 255 MG/DL TRIGLYCERIDES (test code = 2232) 164 MG/DL HDL CHOLESTEROL (test code = 2220) 47 MG/DL CALC LDL CHOL (test code = 2237) 175 MG/DL RISK RATIO LDL/HDL (test cod e = 2238) 3.73 RATIO [id number] 00:00:00* Test Item Value Reference Range Interpretation Comme nts TSH, THIRD GENERATION (test code = 2821) 1.890 UIU/ML [id number] 00:00:00* Test Item Value Reference Range Interpretation Comme nts TSH, THIRD GENERATION (test code = 2821) 1.890 UIU/ML MICROALBUMIN/CREATININE, RANDOM AND [id number] 00:00:00* Test Item Value Reference Range Interpretation Comme nts CREATININE, URINE, CONC. (te st code = 2072) 69.1 MG/DL ALBUMIN, URINE, RANDOM (test code = 97174) 4.7 MG/DL CALC ALBUMIN/CREAT, RND (naat t code = 06470) 68 MG/G HEMOGLOBIN [id number] 00:00:00* Test Item Value Reference Range Interpretation Comme nts HEMOGLOBIN A1c (test code = 26256) 10.3 % HEMOGLOBIN [id number] 00:00:00* Test Item Value Reference Range Interpretation Comme nts HEMOGLOBIN A1c (test code = 50113) 10.3 % HEMOGLOBIN [id number] 00:00:00* Test Item Value Reference Range Interpretation Comme nts HEMOGLOBIN A1c (test code = 72382) 10.3 % CBC W/AUTO [id number] 00:00:00* Test Item Value Reference Range Interpretation Comme nts WBC (test code = 1001) 5.3 K/UL RBC (test code = 1002) 5.66 M/UL HEMOGLOBIN (test code = 1003) 17.2 G/DL HEMATOCRIT (test code = 1004) 50.1 % MCV (test code = 1005) 88.5 fL MCH (test code = 1006) 30.4 PG MCHC (test code = 1007) 34.3 G/DL RDW (test code = 1038) 12.5 % NEUTROPHILS (test code = 1008) 65.1 % LYMPHOCYTES (test code = 1010) 29.1 % MONOCYTES (test code = 1011) 4.6 % EOSINOPHILS (test code = 1012) 0.8 % BASOPHILS (test code = 1013) 0.4 % PLATELET COUNT (test code = 1015) 198 K/UL CBC W/AUTO [id number] 00:00:00* Test Item Value Reference Range Interpretation Comme nts WBC (test code = 1001) 5.3 K/UL RBC (test code = 1002) 5.66 M/UL HEMOGLOBIN (test code = 1003) 17.2 G/DL HEMATOCRIT (test code = 1004) 50.1 % MCV (test code = 1005) 88.5 fL MCH (test code = 1006) 30.4 PG MCHC (test code = 1007) 34.3 G/DL RDW (test code = 1038) 12.5 % NEUTROPHILS (test code = 1008) 65.1 % LYMPHOCYTES (test code = 1010) 29.1 % MONOCYTES (test code = 1011) 4.6 % EOSINOPHILS (test code = 1012) 0.8 % BASOPHILS (test code = 1013) 0.4 % PLATELET COUNT (test code = 1015) 198 K/UL CBC W/AUTO [id number] 00:00:00* Test Item Value Reference Range Interpretation Comme nts WBC (test code = 1001) 5.3 K/UL RBC (test code = 1002) 5.66 M/UL HEMOGLOBIN (test code = 1003) 17.2 G/DL HEMATOCRIT (test code = 1004) 50.1 % MCV (test code = 1005) 88.5 fL MCH (test code = 1006) 30.4 PG MCHC (test code = 1007) 34.3 G/DL RDW (test code = 1038) 12.5 % NEUTROPHILS (test code = 1008) 65.1 % LYMPHOCYTES (test code = 1010) 29.1 % MONOCYTES (test code = 1011) 4.6 % EOSINOPHILS (test code = 1012) 0.8 % BASOPHILS (test code = 1013) 0.4 % PLATELET COUNT (test code = 1015) 198 K/UL COMPREHENSIVE METABOLIC [id number] 00:00:00* Test Item Value Reference Range Interpretation Comme nts GLUCOSE (test code = 2217) 342 MG/DL BUN (test code = 2208) 10 MG/DL CREATININE (test code = 2214) 0.79 MG/DL eGFR AMER. (test cod e = 60678) 143 ML/MIN/1.73 eGFR NON- AMER. (test code = 29212) 123 ML/MIN/1.73 CALC BUN/CREAT (test code = 2235) 13 RATIO SODIUM (test code = 2231) 135 MEQ/L POTASSIUM (test code = 2228) 4.5 MEQ/L CHLORIDE (test code = 2215) 95 MEQ/L CARBON DIOXIDE (test code = 2206) 24 MEQ/L CALCIUM (test code = 2209) 9.2 MG/DL PROTEIN, TOTAL (test code = 2229) 6.6 G/DL ALBUMIN (test code = 2201) 4.2 G/DL CALC GLOBULIN (test code = 2240) 2.4 G/DL CALC A/G RATIO (test code = 2234) 1.8 RATIO BILIRUBIN, TOTAL (test code = 2207) 0.5 MG/DL ALKALINE PHOSPHATASE (test code = 2204) 85 U/L AST (test code = 2218) 17 U/L ALT (test code = 2219) 24 U/L COMPREHENSIVE METABOLIC [id number] 00:00:00* Test Item Value Reference Range Interpretation Comme nts GLUCOSE (test code = 2217) 342 MG/DL BUN (test code = 2208) 10 MG/DL CREATININE (test code = 2214) 0.79 MG/DL eGFR AMER. (test cod e = 35952) 143 ML/MIN/1.73 eGFR NON- AMER. (test code = 66710) 123 ML/MIN/1.73 CALC BUN/CREAT (test code = 2235) 13 RATIO SODIUM (test code = 2231) 135 MEQ/L POTASSIUM (test code = 2228) 4.5 MEQ/L CHLORIDE (test code = 2215) 95 MEQ/L CARBON DIOXIDE (test code = 2206) 24 MEQ/L CALCIUM (test code = 2209) 9.2 MG/DL PROTEIN, TOTAL (test code = 2229) 6.6 G/DL ALBUMIN (test code = 2201) 4.2 G/DL CALC GLOBULIN (test code = 2240) 2.4 G/DL CALC A/G RATIO (test code = 2234) 1.8 RATIO BILIRUBIN, TOTAL (test code = 2207) 0.5 MG/DL ALKALINE PHOSPHATASE (test code = 2204) 85 U/L AST (test code = 2218) 17 U/L ALT (test code = 2219) 24 U/L LIPID [id number] 00:00:00* Test Item Value Reference Range Interpretation Comme nts CHOLESTEROL (test code = 2210) 255 MG/DL TRIGLYCERIDES (test code = 2232) 164 MG/DL HDL CHOLESTEROL (test code = 2220) 47 MG/DL CALC LDL CHOL (test code = 2237) 175 MG/DL RISK RATIO LDL/HDL (test cod e = 2238) 3.73 RATIO LIPID [id number] 00:00:00* Test Item Value Reference Range Interpretation Comme nts CHOLESTEROL (test code = 2210) 255 MG/DL TRIGLYCERIDES (test code = 2232) 164 MG/DL HDL CHOLESTEROL (test code = 2220) 47 MG/DL CALC LDL CHOL (test code = 2237) 175 MG/DL RISK RATIO LDL/HDL (test cod e = 2238) 3.73 RATIO [id number] 00:00:00* Test Item Value Reference Range Interpretation Comme nts TSH, THIRD GENERATION (test code = 2821) 1.890 UIU/ML [id number] 00:00:00* Test Item Value Reference Range Interpretation Comme nts TSH, THIRD GENERATION (test code = 2821) 1.890 UIU/ML [id number] 00:00:00* Test Item Value Reference Range Interpretation Comme nts TSH, THIRD GENERATION (test code = 2821) 1.890 UIU/ML MICROALBUMIN/CREATININE, RANDOM AND [id number] 00:00:00* Test Item Value Reference Range Interpretation Comme nts CREATININE, URINE, CONC. (te st code = 2072) 69.1 MG/DL ALBUMIN, URINE, RANDOM (test code = 16869) 4.7 MG/DL CALC ALBUMIN/CREAT, RND (nata t code = 71763) 68 MG/G MICROALBUMIN/CREATININE, RANDOM AND [id number] 00:00:00* Test Item Value Reference Range Interpretation Comme nts CREATININE, URINE, CONC. (te st code = 2072) 69.1 MG/DL ALBUMIN, URINE, RANDOM (test code = 22011) 4.7 MG/DL CALC ALBUMIN/CREAT, RND (nata t code = 95175) 68 MG/G HEMOGLOBIN [id number] 00:00:00* Test Item Value Reference Range Interpretation Comme nts HEMOGLOBIN A1c (test code = 72875) 10.3 % HEMOGLOBIN [id number] 00:00:00* Test Item Value Reference Range Interpretation Comme nts HEMOGLOBIN A1c (test code = 19546) 10.3 % CBC W/AUTO [id number] 00:00:00* Test Item Value Reference Range Interpretation Comme nts WBC (test code = 1001) 5.3 K/UL RBC (test code = 1002) 5.66 M/UL HEMOGLOBIN (test code = 1003) 17.2 G/DL HEMATOCRIT (test code = 1004) 50.1 % MCV (test code = 1005) 88.5 fL MCH (test code = 1006) 30.4 PG MCHC (test code = 1007) 34.3 G/DL RDW (test code = 1038) 12.5 % NEUTROPHILS (test code = 1008) 65.1 % LYMPHOCYTES (test code = 1010) 29.1 % MONOCYTES (test code = 1011) 4.6 % EOSINOPHILS (test code = 1012) 0.8 % BASOPHILS (test code = 1013) 0.4 % PLATELET COUNT (test code = 1015) 198 K/UL COMPREHENSIVE METABOLIC [id number] 00:00:00* Test Item Value Reference Range Interpretation Comme nts GLUCOSE (test code = 2217) 217 MG/DL BUN (test code = 2208) 15 MG/DL CREATININE (test code = 2214) 0.87 MG/DL eGFR AMER. (test cod e = 53696) 137 ML/MIN/1.73 eGFR NON- AMER. (test code = 49970) 118 ML/MIN/1.73 CALC BUN/CREAT (test code = 2235) 17 RATIO SODIUM (test code = 2231) 138 MEQ/L POTASSIUM (test code = 2228) 4.1 MEQ/L CHLORIDE (test code = 2215) 97 MEQ/L CARBON DIOXIDE (test code = 2206) 24 MEQ/L CALCIUM (test code = 2209) 9.7 MG/DL PROTEIN, TOTAL (test code = 2229) 7.2 G/DL ALBUMIN (test code = 2201) 4.9 G/DL CALC GLOBULIN (test code = 2240) 2.3 G/DL CALC A/G RATIO (test code = 2234) 2.1 RATIO BILIRUBIN, TOTAL (test code = 2207) 0.4 MG/DL ALKALINE PHOSPHATASE (test code = 2204) 94 U/L AST (test code = 2218) 28 U/L ALT (test code = 2219) 44 U/L LIPID [id number] 00:00:00* Test Item Value Reference Range Interpretation Comme nts CHOLESTEROL (test code = 2210) 275 MG/DL TRIGLYCERIDES (test code = 2232) 261 MG/DL HDL CHOLESTEROL (test code = 2220) 47 MG/DL CALC LDL CHOL (test code = 2237) 176 MG/DL RISK RATIO LDL/HDL (test cod e = 2238) 3.74 RATIO MICROALBUMIN/CREATININE, RANDOM AND [id number] 00:00:00* Test Item Value Reference Range Interpretation Comme nts CREATININE, URINE, CONC. (te st code = 2072) 196.3 MG/DL MICROALBUMIN, RANDOM (test c ode = 39007) 7.8 MG/DL CALC MICROALB/CREAT RND (nata t code = 54931) 40 MG/G HEMOGLOBIN [id number] 00:00:00* Test Item Value Reference Range Interpretation Comme nts HEMOGLOBIN A1c (test code = 34088) 10.2 % HEMOGLOBIN [id number] 00:00:00* Test Item Value Reference Range Interpretation Comme nts HEMOGLOBIN A1c (test code = 16205) 10.2 % HEMOGLOBIN [id number] 00:00:00* Test Item Value Reference Range Interpretation Comme nts HEMOGLOBIN A1c (test code = 54367) 10.2 % CBC W/AUTO [id number] 00:00:00* Test Item Value Reference Range Interpretation Comme nts WBC (test code = 1001) 7.9 K/UL RBC (test code = 1002) 5.90 M/UL HEMOGLOBIN (test code = 1003) 18.1 G/DL HEMATOCRIT (test code = 1004) 51.9 % MCV (test code = 1005) 88.0 fL MCH (test code = 1006) 30.7 PG MCHC (test code = 1007) 34.9 G/DL RDW (test code = 1038) 12.1 % NEUTROPHILS (test code = 1008) 62.4 % LYMPHOCYTES (test code = 1010) 30.2 % MONOCYTES (test code = 1011) 5.7 % EOSINOPHILS (test code = 1012) 1.1 % BASOPHILS (test code = 1013) 0.6 % PLATELET COUNT (test code = 1015) 249 K/UL CBC W/AUTO [id number] 00:00:00* Test Item Value Reference Range Interpretation Comme nts WBC (test code = 1001) 7.9 K/UL RBC (test code = 1002) 5.90 M/UL HEMOGLOBIN (test code = 1003) 18.1 G/DL HEMATOCRIT (test code = 1004) 51.9 % MCV (test code = 1005) 88.0 fL MCH (test code = 1006) 30.7 PG MCHC (test code = 1007) 34.9 G/DL RDW (test code = 1038) 12.1 % NEUTROPHILS (test code = 1008) 62.4 % LYMPHOCYTES (test code = 1010) 30.2 % MONOCYTES (test code = 1011) 5.7 % EOSINOPHILS (test code = 1012) 1.1 % BASOPHILS (test code = 1013) 0.6 % PLATELET COUNT (test code = 1015) 249 K/UL CBC W/AUTO [id number] 00:00:00* Test Item Value Reference Range Interpretation Comme nts WBC (test code = 1001) 7.9 K/UL RBC (test code = 1002) 5.90 M/UL HEMOGLOBIN (test code = 1003) 18.1 G/DL HEMATOCRIT (test code = 1004) 51.9 % MCV (test code = 1005) 88.0 fL MCH (test code = 1006) 30.7 PG MCHC (test code = 1007) 34.9 G/DL RDW (test code = 1038) 12.1 % NEUTROPHILS (test code = 1008) 62.4 % LYMPHOCYTES (test code = 1010) 30.2 % MONOCYTES (test code = 1011) 5.7 % EOSINOPHILS (test code = 1012) 1.1 % BASOPHILS (test code = 1013) 0.6 % PLATELET COUNT (test code = 1015) 249 K/UL COMPREHENSIVE METABOLIC [id number] 00:00:00* Test Item Value Reference Range Interpretation Comme nts GLUCOSE (test code = 2217) 217 MG/DL BUN (test code = 2208) 15 MG/DL CREATININE (test code = 2214) 0.87 MG/DL eGFR AMER. (test cod e = 56735) 137 ML/MIN/1.73 eGFR NON- AMER. (test code = 48368) 118 ML/MIN/1.73 CALC BUN/CREAT (test code = 2235) 17 RATIO SODIUM (test code = 2231) 138 MEQ/L POTASSIUM (test code = 2228) 4.1 MEQ/L CHLORIDE (test code = 2215) 97 MEQ/L CARBON DIOXIDE (test code = 2206) 24 MEQ/L CALCIUM (test code = 2209) 9.7 MG/DL PROTEIN, TOTAL (test code = 2229) 7.2 G/DL ALBUMIN (test code = 2201) 4.9 G/DL CALC GLOBULIN (test code = 2240) 2.3 G/DL CALC A/G RATIO (test code = 2234) 2.1 RATIO BILIRUBIN, TOTAL (test code = 2207) 0.4 MG/DL ALKALINE PHOSPHATASE (test code = 2204) 94 U/L AST (test code = 2218) 28 U/L ALT (test code = 2219) 44 U/L COMPREHENSIVE METABOLIC [id number] 00:00:00* Test Item Value Reference Range Interpretation Comme nts GLUCOSE (test code = 2217) 217 MG/DL BUN (test code = 2208) 15 MG/DL CREATININE (test code = 2214) 0.87 MG/DL eGFR AMER. (test cod e = 88859) 137 ML/MIN/1.73 eGFR NON- AMER. (test code = 11862) 118 ML/MIN/1.73 CALC BUN/CREAT (test code = 2235) 17 RATIO SODIUM (test code = 2231) 138 MEQ/L POTASSIUM (test code = 2228) 4.1 MEQ/L CHLORIDE (test code = 2215) 97 MEQ/L CARBON DIOXIDE (test code = 2206) 24 MEQ/L CALCIUM (test code = 2209) 9.7 MG/DL PROTEIN, TOTAL (test code = 2229) 7.2 G/DL ALBUMIN (test code = 2201) 4.9 G/DL CALC GLOBULIN (test code = 2240) 2.3 G/DL CALC A/G RATIO (test code = 2234) 2.1 RATIO BILIRUBIN, TOTAL (test code = 2207) 0.4 MG/DL ALKALINE PHOSPHATASE (test code = 2204) 94 U/L AST (test code = 2218) 28 U/L ALT (test code = 2219) 44 U/L LIPID [id number] 00:00:00* Test Item Value Reference Range Interpretation Comme nts CHOLESTEROL (test code = 2210) 275 MG/DL TRIGLYCERIDES (test code = 2232) 261 MG/DL HDL CHOLESTEROL (test code = 2220) 47 MG/DL CALC LDL CHOL (test code = 2237) 176 MG/DL RISK RATIO LDL/HDL (test cod e = 2238) 3.74 RATIO LIPID [id number] 00:00:00* Test Item Value Reference Range Interpretation Comme nts CHOLESTEROL (test code = 2210) 275 MG/DL TRIGLYCERIDES (test code = 2232) 261 MG/DL HDL CHOLESTEROL (test code = 2220) 47 MG/DL CALC LDL CHOL (test code = 2237) 176 MG/DL RISK RATIO LDL/HDL (test cod e = 2238) 3.74 RATIO MICROALBUMIN/CREATININE, RANDOM AND [id number] 00:00:00* Test Item Value Reference Range Interpretation Comme nts CREATININE, URINE, CONC. (te st code = 2071) 196.3 MG/DL MICROALBUMIN, RANDOM (test c ode = 60283) 7.8 MG/DL CALC MICROALB/CREAT RND (nata t code = 84244) 40 MG/G MICROALBUMIN/CREATININE, RANDOM AND [id number] 00:00:00* Test Item Value Reference Range Interpretation Comme nts CREATININE, URINE, CONC. (te st code = 2071) 196.3 MG/DL MICROALBUMIN, RANDOM (test c ode = 69025) 7.8 MG/DL CALC MICROALB/CREAT RND (nata t code = 57548) 40 MG/G HEMOGLOBIN [id number] 00:00:00* Test Item Value Reference Range Interpretation Comme nts HEMOGLOBIN A1c (test code = 74744) 10.2 % HEMOGLOBIN [id number] 00:00:00* Test Item Value Reference Range Interpretation Comme nts HEMOGLOBIN A1c (test code = 71409) 10.2 % CBC W/AUTO [id number] 00:00:00* Test Item Value Reference Range Interpretation Comme nts WBC (test code = 1001) 7.9 K/UL RBC (test code = 1002) 5.90 M/UL HEMOGLOBIN (test code = 1003) 18.1 G/DL HEMATOCRIT (test code = 1004) 51.9 % MCV (test code = 1005) 88.0 fL MCH (test code = 1006) 30.7 PG MCHC (test code = 1007) 34.9 G/DL RDW (test code = 1038) 12.1 % NEUTROPHILS (test code = 1008) 62.4 % LYMPHOCYTES (test code = 1010) 30.2 % MONOCYTES (test code = 1011) 5.7 % EOSINOPHILS (test code = 1012) 1.1 % BASOPHILS (test code = 1013) 0.6 % PLATELET COUNT (test code = 1015) 249 K/UL CBC W/AUTO [id number] 00:00:00* Test Item Value Reference Range Interpretation Comme nts WBC (test code = 1001) 7.9 K/UL RBC (test code = 1002) 5.90 M/UL HEMOGLOBIN (test code = 1003) 18.1 G/DL HEMATOCRIT (test code = 1004) 51.9 % MCV (test code = 1005) 88.0 fL MCH (test code = 1006) 30.7 PG MCHC (test code = 1007) 34.9 G/DL RDW (test code = 1038) 12.1 % NEUTROPHILS (test code = 1008) 62.4 % LYMPHOCYTES (test code = 1010) 30.2 % MONOCYTES (test code = 1011) 5.7 % EOSINOPHILS (test code = 1012) 1.1 % BASOPHILS (test code = 1013) 0.6 % PLATELET COUNT (test code = 1015) 249 K/UL HEMOGLOBIN [id number] 00:00:00* Test Item Value Reference Range Interpretation Comme nts HEMOGLOBIN A1c (test code = 05808) 10.3 % HEMOGLOBIN [id number] 00:00:00* Test Item Value Reference Range Interpretation Comme nts HEMOGLOBIN A1c (test code = 85372) 10.3 % HEMOGLOBIN [id number] 00:00:00* Test Item Value Reference Range Interpretation Comme nts HEMOGLOBIN A1c (test code = 49512) 10.3 % HEMOGLOBIN [id number] 00:00:00* Test Item Value Reference Range Interpretation Comme nts HEMOGLOBIN A1c (test code = 49256) 10.3 % HEMOGLOBIN [id number] 00:00:00* Test Item Value Reference Range Interpretation Comme nts HEMOGLOBIN A1c (test code = 38707) 10.3 % LIPID [id number] 00:00:00* Test Item Value Reference Range Interpretation Comme nts CHOLESTEROL (test code = 2210) 251 MG/DL TRIGLYCERIDES (test code = 2232) 119 MG/DL HDL CHOLESTEROL (test code = 2220) 50 MG/DL CALCULATED LDL CHOL (test co de = 223) 177 MG/DL RISK RATIO LDL/HDL (test cod e = 2238) 3.54 RATIO HEMOGLOBIN [id number] 00:00:00* Test Item Value Reference Range Interpretation Comme nts HEMOGLOBIN A1c (test code = 59881) 10.8 % HEMOGLOBIN [id number] 00:00:00* Test Item Value Reference Range Interpretation Comme nts HEMOGLOBIN A1c (test code = 48530) 10.8 % HEMOGLOBIN [id number] 00:00:00* Test Item Value Reference Range Interpretation Comme nts HEMOGLOBIN A1c (test code = 84514) 10.8 % COMPREHENSIVE METABOLIC [id number] 00:00:00* Test Item Value Reference Range Interpretation Comme nts GLUCOSE (test code = 2217) 185 MG/DL BUN (test code = 2208) 7 MG/DL CREATININE (test code = 2214) 0.67 MG/DL eGFR AMER. (test cod e = 62438) 155 ML/MIN/1.73 eGFR NON- AMER. (test code = 06789) 134 ML/MIN/1.73 CALCULATED BUN/CREAT (test code = 2235) 10 RATIO SODIUM (test code = 2231) 135 MEQ/L POTASSIUM (test code = 2228) 4.3 MEQ/L CHLORIDE (test code = 2215) 101 MEQ/L CARBON DIOXIDE (test code = 2206) 24 MEQ/L CALCIUM (test code = 2209) 9.5 MG/DL PROTEIN, TOTAL (test code = 2229) 6.8 G/DL ALBUMIN (test code = 2201) 4.3 G/DL CALCULATED GLOBULIN (test code = 2240) 2.5 G/DL CALCULATED A/G RATIO (test code = 2234) 1.7 RATIO BILIRUBIN, TOTAL (test code = 2207) 0.5 MG/DL ALKALINE PHOSPHATASE (test code = 2204) 95 U/L SGOT (AST) (test code = 2218) 20 U/L SGPT (ALT) (test code = 2219) 26 U/L COMPREHENSIVE METABOLIC [id number] 00:00:00* Test Item Value Reference Range Interpretation Comme nts GLUCOSE (test code = 2217) 185 MG/DL BUN (test code = 2208) 7 MG/DL CREATININE (test code = 2214) 0.67 MG/DL eGFR AMER. (test cod e = 81588) 155 ML/MIN/1.73 eGFR NON- AMER. (test code = 26176) 134 ML/MIN/1.73 CALCULATED BUN/CREAT (test code = 2235) 10 RATIO SODIUM (test code = 2231) 135 MEQ/L POTASSIUM (test code = 2228) 4.3 MEQ/L CHLORIDE (test code = 2215) 101 MEQ/L CARBON DIOXIDE (test code = 2206) 24 MEQ/L CALCIUM (test code = 2209) 9.5 MG/DL PROTEIN, TOTAL (test code = 222) 6.8 G/DL ALBUMIN (test code = 220) 4.3 G/DL CALCULATED GLOBULIN (test code = 2240) 2.5 G/DL CALCULATED A/G RATIO (test code = 2234) 1.7 RATIO BILIRUBIN, TOTAL (test code = 2206) 0.5 MG/DL ALKALINE PHOSPHATASE (test code = 220) 95 U/L SGOT (AST) (test code = 221) 20 U/L SGPT (ALT) (test code = 221) 26 U/L LIPID [id number] 00:00:00* Test Item Value Reference Range Interpretation Comme nts CHOLESTEROL (test code = 2210) 251 MG/DL TRIGLYCERIDES (test code = 2232) 119 MG/DL HDL CHOLESTEROL (test code = 2220) 50 MG/DL CALCULATED LDL CHOL (test co de = 2237) 177 MG/DL RISK RATIO LDL/HDL (test cod e = 2238) 3.54 RATIO LIPID [id number] 00:00:00* Test Item Value Reference Range Interpretation Comme nts CHOLESTEROL (test code = 2210) 251 MG/DL TRIGLYCERIDES (test code = 2232) 119 MG/DL HDL CHOLESTEROL (test code = 2220) 50 MG/DL CALCULATED LDL CHOL (test co de = 2237) 177 MG/DL RISK RATIO LDL/HDL (test cod e = 2238) 3.54 RATIO HEMOGLOBIN [id number] 00:00:00* Test Item Value Reference Range Interpretation Comme nts HEMOGLOBIN A1c (test code = 55499) 10.8 % HEMOGLOBIN [id number] 00:00:00* Test Item Value Reference Range Interpretation Comme nts HEMOGLOBIN A1c (test code = 99160) 10.8 % COMPREHENSIVE METABOLIC [id number] 00:00:00* Test Item Value Reference Range Interpretation Comme nts GLUCOSE (test code = 2217) 185 MG/DL BUN (test code = 2208) 7 MG/DL CREATININE (test code = 2214) 0.67 MG/DL eGFR AMER. (test cod e = 89342) 155 ML/MIN/1.73 eGFR NON- AMER. (test code = 24310) 134 ML/MIN/1.73 CALCULATED BUN/CREAT (test code = 2235) 10 RATIO SODIUM (test code = 2231) 135 MEQ/L POTASSIUM (test code = 2228) 4.3 MEQ/L CHLORIDE (test code = 2215) 101 MEQ/L CARBON DIOXIDE (test code = 2206) 24 MEQ/L CALCIUM (test code = 2209) 9.5 MG/DL PROTEIN, TOTAL (test code = 2229) 6.8 G/DL ALBUMIN (test code = 2201) 4.3 G/DL CALCULATED GLOBULIN (test code = 2240) 2.5 G/DL CALCULATED A/G RATIO (test code = 2234) 1.7 RATIO BILIRUBIN, TOTAL (test code = 2207) 0.5 MG/DL ALKALINE PHOSPHATASE (test code = 2204) 95 U/L SGOT (AST) (test code = 2218) 20 U/L SGPT (ALT) (test code = 2219) 26 U/L CBC W/AUTO [id number] 00:00:00* Test Item Value Reference Range Interpretation Comme nts WBC (test code = 1001) 5.5 K/UL RBC (test code = 1002) 5.73 M/UL HEMOGLOBIN (test code = 1003) 16.9 G/DL HEMATOCRIT (test code = 1004) 51.5 % MCV (test code = 1005) 89.9 fL MCH (test code = 1006) 29.5 PG MCHC (test code = 1007) 32.8 G/DL RDW (test code = 1038) 13.2 % NEUTROPHILS (test code = 1008) 60 % LYMPHOCYTES (test code = 1010) 33 % MONOCYTES (test code = 1011) 5 % EOSINOPHILS (test code = 1012) 1 % BASOPHILS (test code = 1013) % PLATELET COUNT (test code = 1015) 190 K/UL CBC W/AUTO [id number] 00:00:00* Test Item Value Reference Range Interpretation Comme nts WBC (test code = 1001) 5.5 K/UL RBC (test code = 1002) 5.73 M/UL HEMOGLOBIN (test code = 1003) 16.9 G/DL HEMATOCRIT (test code = 1004) 51.5 % MCV (test code = 1005) 89.9 fL MCH (test code = 1006) 29.5 PG MCHC (test code = 1007) 32.8 G/DL RDW (test code = 1038) 13.2 % NEUTROPHILS (test code = 1008) 60 % LYMPHOCYTES (test code = 1010) 33 % MONOCYTES (test code = 1011) 5 % EOSINOPHILS (test code = 1012) 1 % BASOPHILS (test code = 1013) % PLATELET COUNT (test code = 1015) 190 K/UL HEMOGLOBIN [id number] 00:00:00* Test Item Value Reference Range Interpretation Comme nts HEMOGLOBIN A1c (test code = 82569) 11.3 % HEMOGLOBIN [id number] 00:00:00* Test Item Value Reference Range Interpretation Comme nts HEMOGLOBIN A1c (test code = 11835) 11.3 % [id number] 00:00:00* Test Item Value Reference Range Interpretation Comme nts TSH (test code = 2821) 1.7 UIU/ML [id number] 00:00:00* Test Item Value Reference Range Interpretation Comme nts TSH (test code = 2821) 1.7 UIU/ML COMPREHENSIVE METABOLIC [id number] 00:00:00* Test Item Value Reference Range Interpretation Comme nts GLUCOSE (test code = 2217) 258 MG/DL BUN (test code = 2208) 11 MG/DL CREATININE (test code = 2214) 0.68 MG/DL eGFR AMER. (test cod e = 13648) 154 ML/MIN/1.73 eGFR NON- AMER. (test code = 51743) 133 ML/MIN/1.73 CALCULATED BUN/CREAT (test code = 2235) 16 RATIO SODIUM (test code = 2231) 135 MEQ/L POTASSIUM (test code = 2228) 4.1 MEQ/L CHLORIDE (test code = 2215) 102 MEQ/L CARBON DIOXIDE (test code = 2206) 25 MEQ/L CALCIUM (test code = 2209) 9.7 MG/DL PROTEIN, TOTAL (test code = 2229) 6.9 G/DL ALBUMIN (test code = 2201) 4.5 G/DL CALCULATED GLOBULIN (test code = 2240) 2.4 G/DL CALCULATED A/G RATIO (test code = 2234) 1.9 RATIO BILIRUBIN, TOTAL (test code = 2207) 0.7 MG/DL ALKALINE PHOSPHATASE (test code = 2204) 90 U/L SGOT (AST) (test code = 2218) 23 U/L SGPT (ALT) (test code = 2219) 35 U/L COMPREHENSIVE METABOLIC [id number] 00:00:00* Test Item Value Reference Range Interpretation Comme nts GLUCOSE (test code = 2217) 258 MG/DL BUN (test code = 2208) 11 MG/DL CREATININE (test code = 2214) 0.68 MG/DL eGFR AMER. (test cod e = 21466) 154 ML/MIN/1.73 eGFR NON- AMER. (test code = 96575) 133 ML/MIN/1.73 CALCULATED BUN/CREAT (test code = 2235) 16 RATIO SODIUM (test code = 2231) 135 MEQ/L POTASSIUM (test code = 2228) 4.1 MEQ/L CHLORIDE (test code = 2215) 102 MEQ/L CARBON DIOXIDE (test code = 2206) 25 MEQ/L CALCIUM (test code = 2209) 9.7 MG/DL PROTEIN, TOTAL (test code = 2229) 6.9 G/DL ALBUMIN (test code = 2201) 4.5 G/DL CALCULATED GLOBULIN (test code = 2240) 2.4 G/DL CALCULATED A/G RATIO (test code = 2234) 1.9 RATIO BILIRUBIN, TOTAL (test code = 2207) 0.7 MG/DL ALKALINE PHOSPHATASE (test code = 2204) 90 U/L SGOT (AST) (test code = 2218) 23 U/L SGPT (ALT) (test code = 2219) 35 U/L LIPID [id number] 00:00:00* Test Item Value Reference Range Interpretation Comme nts CHOLESTEROL (test code = 2210) 296 MG/DL TRIGLYCERIDES (test code = 2232) 135 MG/DL HDL CHOLESTEROL (test code = 2220) 49 MG/DL CALCULATED LDL CHOL (test co de = 2237) 220 MG/DL RISK RATIO LDL/HDL (test cod e = 2238) 4.49 RATIO LIPID [id number] 00:00:00* Test Item Value Reference Range Interpretation Comme nts CHOLESTEROL (test code = 2210) 296 MG/DL TRIGLYCERIDES (test code = 2232) 135 MG/DL HDL CHOLESTEROL (test code = 2220) 49 MG/DL CALCULATED LDL CHOL (test co de = 2237) 220 MG/DL RISK RATIO LDL/HDL (test cod e = 2238) 4.49 RATIO CBC W/AUTO [id number] 00:00:00* Test Item Value Reference Range Interpretation Comme nts WBC (test code = 1001) 5.5 K/UL RBC (test code = 1002) 5.73 M/UL HEMOGLOBIN (test code = 1003) 16.9 G/DL HEMATOCRIT (test code = 1004) 51.5 % MCV (test code = 1005) 89.9 fL MCH (test code = 1006) 29.5 PG MCHC (test code = 1007) 32.8 G/DL RDW (test code = 1038) 13.2 % NEUTROPHILS (test code = 1008) 60 % LYMPHOCYTES (test code = 1010) 33 % MONOCYTES (test code = 1011) 5 % EOSINOPHILS (test code = 1012) 1 % BASOPHILS (test code = 1013) % PLATELET COUNT (test code = 1015) 190 K/UL CBC W/AUTO [id number] 00:00:00* Test Item Value Reference Range Interpretation Comme nts WBC (test code = 1001) 5.5 K/UL RBC (test code = 1002) 5.73 M/UL HEMOGLOBIN (test code = 1003) 16.9 G/DL HEMATOCRIT (test code = 1004) 51.5 % MCV (test code = 1005) 89.9 fL MCH (test code = 1006) 29.5 PG MCHC (test code = 1007) 32.8 G/DL RDW (test code = 1038) 13.2 % NEUTROPHILS (test code = 1008) 60 % LYMPHOCYTES (test code = 1010) 33 % MONOCYTES (test code = 1011) 5 % EOSINOPHILS (test code = 1012) 1 % BASOPHILS (test code = 1013) % PLATELET COUNT (test code = 1015) 190 K/UL CBC W/AUTO [id number] 00:00:00* Test Item Value Reference Range Interpretation Comme nts WBC (test code = 1001) 5.5 K/UL RBC (test code = 1002) 5.73 M/UL HEMOGLOBIN (test code = 1003) 16.9 G/DL HEMATOCRIT (test code = 1004) 51.5 % MCV (test code = 1005) 89.9 fL MCH (test code = 1006) 29.5 PG MCHC (test code = 1007) 32.8 G/DL RDW (test code = 1038) 13.2 % NEUTROPHILS (test code = 1008) 60 % LYMPHOCYTES (test code = 1010) 33 % MONOCYTES (test code = 1011) 5 % EOSINOPHILS (test code = 1012) 1 % BASOPHILS (test code = 1013) % PLATELET COUNT (test code = 1015) 190 K/UL HEMOGLOBIN [id number] 00:00:00* Test Item Value Reference Range Interpretation Comme nts HEMOGLOBIN A1c (test code = 08509) 11.3 % HEMOGLOBIN [id number] 00:00:00* Test Item Value Reference Range Interpretation Comme nts HEMOGLOBIN A1c (test code = 57625) 11.3 % HEMOGLOBIN [id number] 00:00:00* Test Item Value Reference Range Interpretation Comme nts HEMOGLOBIN A1c (test code = 69850) 11.3 % [id number] 00:00:00* Test Item Value Reference Range Interpretation Comme nts TSH (test code = 2821) 1.7 UIU/ML [id number] 00:00:00* Test Item Value Reference Range Interpretation Comme nts TSH (test code = 2821) 1.7 UIU/ML [id number] 00:00:00* Test Item Value Reference Range Interpretation Comme nts TSH (test code = 2821) 1.7 UIU/ML COMPREHENSIVE METABOLIC [id number] 00:00:00* Test Item Value Reference Range Interpretation Comme nts GLUCOSE (test code = 2217) 258 MG/DL BUN (test code = 2208) 11 MG/DL CREATININE (test code = 2214) 0.68 MG/DL eGFR AMER. (test cod e = 95688) 154 ML/MIN/1.73 eGFR NON- AMER. (test code = 93123) 133 ML/MIN/1.73 CALCULATED BUN/CREAT (test code = 2235) 16 RATIO SODIUM (test code = 223) 135 MEQ/L POTASSIUM (test code = 2228) 4.1 MEQ/L CHLORIDE (test code = 2215) 102 MEQ/L CARBON DIOXIDE (test code = 2206) 25 MEQ/L CALCIUM (test code = 2209) 9.7 MG/DL PROTEIN, TOTAL (test code = 222) 6.9 G/DL ALBUMIN (test code = 220) 4.5 G/DL CALCULATED GLOBULIN (test code = 2240) 2.4 G/DL CALCULATED A/G RATIO (test code = 2234) 1.9 RATIO BILIRUBIN, TOTAL (test code = 220) 0.7 MG/DL ALKALINE PHOSPHATASE (test code = 2204) 90 U/L SGOT (AST) (test code = 221) 23 U/L SGPT (ALT) (test code = 221) 35 U/L LIPID [id number] 00:00:00* Test Item Value Reference Range Interpretation Comme nts CHOLESTEROL (test code = 221) 296 MG/DL TRIGLYCERIDES (test code = 2232) 135 MG/DL HDL CHOLESTEROL (test code = 2220) 49 MG/DL CALCULATED LDL CHOL (test co de = 2236) 220 MG/DL RISK RATIO LDL/HDL (test cod e = 2238) 4.49 RATIO
[2023-10-02] MEDS ORDERED: KETOROLAC 30 MG/ML INJ ONE (22:01)
[2023-10-02] MEDS ORDERED: NS KCL 20MEQ 1,000 ML IV ONE (22:02)
[2023-10-02 22:06] LABS: PT Prothrombin Time 12.5 SECONDS (9.4-12.5); PTT, Activated Partial Thromb 33.6 SECONDS (24.3-36.9); Protime INR 1.14
--- NOTE | 2023-10-02 22:10 | RAD REPORT ---
EXAM DESCRIPTION: US - Extremity Venous Uni Ltd - 10/02/2023 10:05 pm CLINICAL HISTORY: Pain, swelling COMPARISON: None. TECHNIQUE: Real-time sonographic evaluation of the right lower extremity deep venous system was perf ormed. FINDINGS: Normal compressibility, flow augmentation, phasic flow and spontaneous flow is identified in the right lower extremity deep venous system. No intraluminal filling defects seen. IMPRESSION: No DVT in the right lower extremity.
[2023-10-02 22:19] LABS: Specific Gravity 1.009 (1.005-1.030); Urine Bilirubin NEGATIVE (Negative); Urine Blood Negative (Negative); Urine Clarity Clear (Clear); Urine Color Colorless (Yellow); Urine Glucose 3+ (Negative); Urine Ketones NEGATIVE (Negative); Urine Microscopic Reflex YN NO UMIC; Urine Nitrite NEGATIVE (Negative); Urine Protein NEGATIVE (Negative); Urine Urobilinogen Normal (Normal); Urine pH 6.5 (5.0-7.0)
[2023-10-02 22:21] LABS: ALT/SGPT 26 U/L (16-61); Absolute Lymphocytes (CBC) 1.1 K/uL (0.7-4.9); Absolute Monocytes 0.7 K/uL (0.1-1.3); Absolute Neutrophil 8.7 K/uL (1.8-8.0); Albumin 3.7 g/dL (3.4-5.0); Alkaline Phosphatase 74 U/L (45-117); Anion Gap 8.9 mEq/L (5.0-15.0); BUN Blood Urea Nitrogen 15 mg/dL (7-18); Basophils % 0.2 % (0-1.3); Bicarbonate 27 mEq/L (21-32); Bilirubin Total 0.5 mg/dL (0.2-1.0); Eosinophils % 0.2 % (0-4.4); Globulin 3.7 g/dL (2.3-3.5); Glomerular Filtration Rate 88 ml/min (=/>90); Glucose Level 210 mg/dL (74-106); Hemoglobin 16.5 g/dL (13.6-17.9); Lymphocytes % 10.3 % (15.3-44.8); MCH 31.9 pg (27.0-35.0); MCHC 33.6 g/dL (32.0-36.0); MPV 9.7 fL (7.6-11.3); Monocytes % 6.4 % (3.3-12.3); Neutrophils % 82.9 % (41.7-73.7); Platelets 194 thou/uL (152-406); Potassium 3.9 mEq/L (3.5-5.1); Protein, Total 7.4 g/dL (6.4-8.2); RBC Red Blood Cell Count 5.16 M/uL (4.33-5.43); Red Cell Distribution Width 13.3 % (12.1-15.2); Sodium Level 134 mEq/L (136-145)
[2023-10-02 22:26] LABS: AST/SGOT < 10 U/L (15-37)
[2023-10-02] MEDS ORDERED: CLINDAMYCIN 900MG/D5W 900 MG/50 ML IVPB IV ONE (22:39)
[2023-10-02] MEDS ORDERED: SMZ./TMP. 800/160 MG TABLET ONE (22:39)
--- NOTE | 2023-10-02 23:51 | ER ---
Nurse's Notes [facility] Name: Edgar Little Age: 32 yrs Sex: Male : 1990 Arrival Date: 10/02/2023 Time: 20:42 Bed 6 Private MD: Diagnosis: Cellulitis of right lower limb-right knee Presentation: 10/01 20:55 Chief complaint: Patient states: Right knee pain and swelling onset yesterday morning. cm10 Pt states that he also has redness. Pt states this began after working on his knees and not using knee pads. Coronavirus screen: Client denies travel out of the [place] in the last 14 days. At this time, the client does not indicate any symptoms associated with coronavirus-19. Ebola Screen: Patient denies travel to an Ebola-affected area in the 21 days before illness onset. No symptoms or risks identified at this time. Initial Sepsis Screen: Does the patient meet any 2 criteria? HR > 90 bpm. Does the patient have a suspected source of infection? No. Patient's initial sepsis screen is negative. Risk Assessment: Do you want to hurt yourself or someone else? Patient reports no desire to harm self or others. Onset of symptoms was October 02, 2023. 20:55 Method Of Arrival: Ambulatory cm10 20:55 Acuity: ROBERT 3 cm10 Triage Assessment: 20:56 General: Appears in no apparent distress. comfortable, Behavior is calm, cooperative. cm10 Pain: Complains of pain in right leg. Neuro: No deficits noted. Level of Consciousness is awake, alert, obeys commands, Oriented to person, place, time, situation, Appropriate for age. Respiratory: No deficits noted. Airway is patent Respiratory effort is even, unlabored, Respiratory pattern is regular, symmetrical. Musculoskeletal: Reports pain in right leg. Historical: - Allergies: 20:56 No Known Drug Allergies; cm10 - PMHx: 20:56 Diabetes - NIDDM; Hypertension; cm10 - Immunization history:: Adult Immunizations up to date. - Infectious Disease History:: Denies. - Social history:: Smoking status: Patient denies any tobacco usage or history of. Screenin:[address] [facility] ED Fall Risk Assessment (Adult) History of falling in the last 3 months, jj7 including since admission No falls in past 3 months (0 pts) Confusion or Disorientation No (0 pts) Intoxicated or Sedated No (0 pts) Impaired Gait No (0 pts) Mobility Assist Device Used No (0 pt) Altered Elimination No (0 pt) Score/Fall Risk Level 0 - 2 = Low Risk Oriented to surroundings, Maintained a safe environment, Educated pt \T\ family on fall prevention, incl call for assistance when getting out of bed. Abuse screen: Denies threats or abuse. Nutritional screening: No deficits noted. Tuberculosis screening: No symptoms or risk factors identified. Assessment: 21:08 General: Appears in no apparent distress. comfortable, Behavior is calm. Pain: jj7 Complains of pain in right knee. Derm: Skin is red, Skin temperature is hot Reports increased pain. Vital Signs: 20:55 BP 153 / 86; Pulse 102; Resp 16; Temp 97.3(TE); Pulse Ox 99% ; Weight 83.91 kg; Height cm10 5 ft. 8 in. ; Pain 9/10; 21:25 BP 132 / 69; Pulse 96; Resp 17; Pulse Ox 100% ; jj7 22:18 BP 137 / 85; Pulse 90; Resp 17; Pulse Ox 100% ; jj7 23:22 BP 159 / 84; Pulse 99; Resp 19; Pulse Ox 99% ; Pain 0/10; jj7 23:59 BP 134 / 78; Pulse 90; Resp 17; Temp 97.3; Pulse Ox 100% ; Pain 0/10; jj7 20:55 Body Mass Index 28.13 (83.91 kg, 172.72 cm) cm10 20:55 Pain Scale: Adult cm10 23:22 Pain Scale: Adult jj7 23:59 Pain Scale: Adult jj7 ED Course: 20:44 Patient arrived in ED. im 20:56 Rl Cunningham PA is PHCP. cp 20:56 Jorgito Monaco MD is Attending Physician. cp 20:56 Triage completed. cm10 20:57 Arm band placed on Patient placed in an exam room, on a stretcher. cm10 21:08 Patient has correct armband on for positive identification. Bed in low position. Call jj7 light in reach. Provided Education on: USE OF CALL [place]ACHO. Client placed on continuous cardiac and pulse oximetry monitoring. NIBP monitoring applied. Pulse ox on. 21:47 Inserted saline lock: 20 gauge in left antecubital area, using aseptic technique. rv1 21:48 Blood Culture Adult (2) Sent. rv1 21:48 CBC with Diff Sent. rv1 21:48 CMP Sent. rv1 21:48 Lactate w/ 2H reflex if indic. Sent. rv1 21:48 Protime (+inr) Sent. rv1 21:48 Ptt, Activated Sent. rv1 21:48 Urinalysis w/ reflexes Sent. rv1 22:07 US Extremity Venous Unilateral Ltd In Process Unspecified. EDMS 22:17 No provider procedures requiring assistance completed. jj7 22:58 XRAY Knee RIGHT 3 view In Process Unspecified. EDMS 23:59 IV discontinued, intact, bleeding controlled, No redness/swelling at site. Pressure jj7 dressing applied. Administered Medications: 22:08 Drug: Ketorolac IVP 15 mg IVP once Route: IVP; Site: left antecubital; jj7 22:30 Follow up: Response: Pain is decreased jj7 22:08 Drug: NS 0.45 % with KCl IV 20 mEq/L 1000 ml IV at 125 ml/hr once Route: IV; Rate: 125 jj7 ml/hr; Site: left antecubital; 23:59 Follow up: IV Status: Completed infusion; IV Intake: 150ml jj7 22:53 Drug: Clindamycin IVPB 900 mg IVPB once over 30 mins; (mix in 50 mL) Route: IVPB; jw7 Infused Over: 30 mins; Site: left antecubital; 23:18 Follow up: IV Status: Completed infusion jj7 22:53 Drug: Trimethoprim-Sulfamethoxazole PO (160 mg-800 mg (DS) 2 tabs PO once Route: PO; jw7 23:58 Follow up: Response: No adverse reaction jj7 Medication: 21:08 VIS not applicable for this client. jj7 Point of Care Testing: Blood Glucose: 22:19 Blood Glucose: 221 mg/dL; jj7 Ranges: Intake: 23:59 IV: 150ml; Total: 150ml. jj7 Outcome: 23:51 Discharge ordered by MD. wang 23:56 Patient left the ED. jj7 23:59 Discharged to home ambulatory, with family, jj7 23:59 Condition: improved 23:59 Discharge instructions given to patient, Instructed on discharge instructions, follow up and referral plans. medication usage, Demonstrated understanding of instructions, follow-up care, medications, Prescriptions given X 3, Signatures: Dispatcher [employer] EDMS Rl Cunningham PA PA cp Waits, Jodi RN RN jw7 Jailene Ramos RN RN jj7 Esperanza Spaulding rv1 Kelli Garcia Clarissa RN RN cm10 Corrections: (The following items were deleted from the chart) 10/02 00:05 00:04 Patient left the ED. loretta [email or web address]
--- NOTE | 2023-10-02 23:51 | EDPHYS ---
Physician Documentation [facility] Name: Edgar Little Age: 32 yrs Sex: Male : 1990 Arrival Date: 10/02/2023 Time: 20:42 Bed 6 Private MD: ED Physician Jorgito Monaco HPI: 10/01 21:30 This 32 yrs old Male presents to ER via Ambulatory with complaints of Knee cp Pain, Leg Swelling. 21:30 The patient presents with pain, that is acute, swelling, tenderness. The complaints cp affect the right knee and right lower leg. Onset: The symptoms/episode began/occurred yesterday. Associated signs and symptoms: Pertinent positives: calf tenderness, warmth, erythema, Pertinent negatives fever. Treatment prior to arrival includes: no previous treatment. Patient reports he was kneeling on his knees couple days ago. denies any injury. Historical: - Allergies: 20:56 No Known Drug Allergies; cm10 - PMHx: 20:56 Diabetes - NIDDM; Hypertension; cm10 - Immunization history:: Adult Immunizations up to date. - Infectious Disease History:: Denies. - Social history:: Smoking status: Patient denies any tobacco usage or history of. ROS: 21:33 Constitutional: Negative for body aches, chills, fever, poor PO intake, cp 21:33 Eyes: Negative for injury, pain, redness, and discharge, cp 21:33 Cardiovascular: Negative for chest pain, 21:33 Respiratory: Negative for cough, shortness of breath, wheezing, 21:33 Abdomen/GI: Negative for abdominal pain, nausea, vomiting, and diarrhea, 21:33 Back: Negative for pain at rest, pain with movement, 21:33 MS/extremity: Positive for erythema, pain, swelling, tenderness, of the right knee and right lower leg, Negative for paresthesias, 21:33 All other systems are negative, Exam: 21:35 Constitutional: The patient appears in no acute distress, alert, awake, cp non-diaphoretic, non-toxic, well developed, well nourished, uncomfortable, 21:35 Head/Face: Normocephalic, atraumatic. cp 21:35 Eyes: Periorbital structures: appear normal, Conjunctiva: normal, no exudate, no injection, Sclera: no appreciated abnormality, Lids and lashes: appear normal, bilaterally, 21:35 ENT: External ear(s): are unremarkable, Nose: is normal, Mouth: Lips: moist, Oral mucosa: moist, Posterior pharynx: Airway: no evidence of obstruction, patent, 21:35 Chest/axilla: Inspection: normal, 21:35 Cardiovascular: Rate: tachycardic, Rhythm: regular, 21:35 Respiratory: the patient does not display signs of respiratory distress, Respirations: normal, no use of accessory muscles, no retractions, labored breathing, is not present, Breath sounds: are clear throughout, no decreased breath sounds, no stridor, no wheezing, 21:35 Abdomen/GI: Inspection: abdomen appears normal, 21:35 Back: pain, is absent, ROM is normal, 21:35 Musculoskeletal/extremity: Extremities: grossly normal except: noted in the right knee: anterior knee swelling, erythema and tenderness. overlying skin intact. moderate pain with passive ROM right knee, Vital Signs: 20:55 BP 153 / 86; Pulse 102; Resp 16; Temp 97.3(TE); Pulse Ox 99% ; Weight 83.91 kg; Height cm10 5 ft. 8 in. ; Pain 9/10; 21:25 BP 132 / 69; Pulse 96; Resp 17; Pulse Ox 100% ; jj7 22:18 BP 137 / 85; Pulse 90; Resp 17; Pulse Ox 100% ; jj7 23:22 BP 159 / 84; Pulse 99; Resp 19; Pulse Ox 99% ; Pain 0/10; jj7 23:59 BP 134 / 78; Pulse 90; Resp 17; Temp 97.3; Pulse Ox 100% ; Pain 0/10; jj7 20:55 Body Mass Index 28.13 (83.91 kg, 172.72 cm) cm10 20:55 Pain Scale: Adult cm10 23:22 Pain Scale: Adult jj7 23:59 Pain Scale: Adult jj7 MDM: 20:59 Patient medically screened. cp 23:50 Data reviewed: vital signs, nurses notes, lab test result(s), radiologic studies, plain cp films, and as a result, I will discharge patient. 23:50 Differential diagnosis: sepsis, cellulitis, abscess, bursitis, septic joint. I cp considered the following discharge prescriptions or medication management in the emergency department Medications were administered in the Emergency Department. See EDWARDO. Care significantly affected by the following chronic conditions: Diabetes, Hypertension. Counseling: I had a detailed discussion with the patient and/or guardian regarding the historical points, exam findings, and any diagnostic results supporting the discharge/admit diagnosis, lab results, radiology results, the need for outpatient follow up, a family practitioner, to return to the emergency department if symptoms worsen or persist or if there are any questions or concerns that arise at home. Response to treatment: the patient's symptoms have mildly improved after treatment, and as a result, I will discharge patient. 10/01 21:21 Order name: Blood Culture Adult (2); Complete Time: 23:25 cp 10/01 21:21 Order name: CBC with Diff; Complete Time: 22:28 cp 10/01 22:28 Interpretation: Normal except: LINDEN% 82.9; LYM% 10.3; NEUT A 8.7. cp 10/01 21:21 Order name: CMP; Complete Time: 22:28 cp 10/01 22:29 Interpretation: Normal except: NA 134; GLUC 210; GFR 88; AST < 10; GLOB 3.7; A/G 1.0. cp 10/01 21:21 Order name: Lactate w/ 2H reflex if indic.; Complete Time: 22:28 cp 10/01 21:21 Order name: Protime (+inr); Complete Time: 22:10 cp 10/01 21:21 Order name: Ptt, Activated; Complete Time: 22:10 cp 10/01 21:21 Order name: Urinalysis w/ reflexes; Complete Time: 22:28 cp 10/01 22:24 Order name: Glucose, Ancillary Testing; Complete Time: 22:28 EDMS 10/01 21:21 Order name: US Extremity Venous Unilateral Ltd; Complete Time: 22:10 cp 10/01 22:11 Interpretation: Report reviewed. 10/01 21:21 Order name: XRAY Knee RIGHT 3 view; Complete Time: 23:25 cp 10/01 21:21 Order name: Accucheck Blood Glucose; Complete Time: 22:17 cp 10/01 21:21 Order name: Accucheck; Complete Time: 22:17 cp 10/01 21:21 Order name: Cardiac monitoring; Complete Time: 22:08 cp 10/01 21:21 Order name: IV Saline Lock - Large Bore; Complete Time: 21:48 cp 10/01 21:21 Order name: Labs collected and sent; Complete Time: 21:48 cp 10/01 21:21 Order name: O2 Per Protocol; Complete Time: 22:08 cp 10/01 21:21 Order name: O2 Sat Monitoring; Complete Time: 22:08 cp 10/01 21:21 Order name: Vital Signs; Complete Time: 21:27 cp Administered Medications: 22:08 Drug: Ketorolac IVP 15 mg IVP once Route: IVP; Site: left antecubital; jj7 22:30 Follow up: Response: Pain is decreased jj7 22:08 Drug: NS 0.45 % with KCl IV 20 mEq/L 1000 ml IV at 125 ml/hr once Route: IV; Rate: 125 jj7 ml/hr; Site: left antecubital; 23:59 Follow up: IV Status: Completed infusion; IV Intake: 150ml jj7 22:53 Drug: Clindamycin IVPB 900 mg IVPB once over 30 mins; (mix in 50 mL) Route: IVPB; jw7 Infused Over: 30 mins; Site: left antecubital; 23:18 Follow up: IV Status: Completed infusion jj7 22:53 Drug: Trimethoprim-Sulfamethoxazole PO (160 mg-800 mg (DS) 2 tabs PO once Route: PO; jw7 23:58 Follow up: Response: No adverse reaction jj7 Point of Care Testing: Blood Glucose: 22:19 Blood Glucose: 221 mg/dL; jj7 Ranges: Critical Glucose Levels:Adult <50 mg/dl or >400 mg/dl <40 mg/dl or >180 mg/dl Disposition Summary: 10/02/23 23:51 Discharge Ordered Notes: Location: Home cp Problem: new cp Symptoms: have improved cp Condition: Stable cp Diagnosis - Cellulitis of right lower limb - right knee cp Followup: cp - With: Private Physician - When: 2 - 3 days - Reason: Recheck today's complaints Discharge Instructions: - Discharge Summary Sheet cp - Cellulitis, Adult cp Forms: - Medication Reconciliation Form cp - Antibiotic Education cp - Prescription Opioid Use cp - Patient Portal Instructions cp - Leadership Thank You Letter cp Prescriptions: - Anaprox DS 550 mg Oral Tablet - take 1 tablet ORAL route every 12 hours As needed; 20 tablet; Refills: 0, cp Product Selection Permitted - Clindamycin HCl 300 mg Oral Capsule - take 1 capsule ORAL route every 6 hours for 10 days; 40 capsule; Refills: 0, cp Product Selection Permitted - Bactrim DS 800-160 mg Oral Tablet - take 1 tablet ORAL route every 12 hours for 10 days; 20 tablet; Refills: 0, cp Product Selection Permitted Signatures: Dispatcher [employer] EDMS Rl Cunningham PA PA cp Waits, Jodi, RN RN jw7 Jailene Ramos RN RN jj7 Twila Beckham RN RN cm10 Corrections: (The following items were deleted from the chart) 21:22 21:22 BLOOD CULTURE*+BA.LAB.BRZ ordered. EDMS EDMS : 21:22 CBC+H.LAB.BRZ ordered. EDMS EDMS : 21:22 COMPREHENSIVE METABOLIC PANEL+C.LAB.BRZ ordered. EDMS EDMS : 21:22 LACTATE+C.LAB.BRZ ordered. EDMS EDMS : 21:22 PROTIME (+INR)+COAG.LAB.BRZ ordered. EDMS EDMS : 21:22 PTT, ACTIVATED+COAG.LAB.BRZ ordered. EDMS EDMS 21:22 21:22 Urinalysis+U.LAB.BRZ ordered. EDMS EDMS : 21:22 Knee Right 3 View+RAD.RAD.BRZ ordered. EDMS EDMS
[2023-10-03 00:31] VITALS: BP 134/78; TEMP 97.3; O2SAT 100
--- NOTE | 2023-10-03 10:32 | RAD REPORT ---
EXAM DESCRIPTION: Knee Right 3 View CLINICAL HISTORY: Pain;Swelling COMPARISON: None. FINDINGS: 3 views of the right knee. No acute fracture or dislocation. Normal osseous forensic computer examiner alization. Edema in the prepatellar soft tissues. IMPRESSION: 1. No acute fracture or dislocation. 2. Edema in the prepatellar soft tissues. Electronically signed by: Deny Plaza DO 10/03/2023 12:42 AM CDT RP [id number] Due to temporary technical issues with the PACS/Fluency reporting system, reports are being signed by the in house radiologist without review as a courtesy to ensure prompt reporting. The interpreting r adiologist is fully responsible for the content of the report.
== END 2023-10-03 00:04 | disposition home or self-care (01) ==
LOC: ER 20:42
DX: L03.115 Cellulitis of right lower limb (principal)
CPT/HCPCS: 36415; 80053; 81003; 82947; 83605; 85025; 85610; 85730; 87040; 93971; 96365; 96375; 99284; J3480